=== PATIENT | male | born 1995 | race African-American/Black ===

== ENCOUNTER 2022-07-14 15:50 | Emergency (ER) | payer SELFPAY ==
--- OUTSIDE RECORDS SUMMARY | 2022-07-14 15:56 | XMS REPORT | Continuity of Care Document ---
:1995 Author Organization [facility] Address [address] [place] [address] Care Team Providers Name Role Phone Chadwick Martins Jr Attending Clinician Bull Covarrubias Admitting Clinician Unavailable Payers Payer Name Policy Type Policy Number Effective Date Expiration Date S ource Problems Condition Condition Condition Status Onset Resolution Last Treating Co mments Source Name Details Category Date Date Treatment Clinician Date CHEST PAIN CHEST Diagnosis Active 2015-092016-07-02 Memoria PAIN 0-15 14:47:00 l Active 00:00: [place] 06/16/2016 00 [facility] CONGESTION CONGESTIO Diagnosis Active 2012-05-20 Memoria BODY ACHES N BODY 05-19 08:51:00 l ACHES 00:00: Joey Active 00 05/19/2012 [facility] ABD PAIN ABD PAIN Diagnosis Active 2012-02-28 Memoria Active 02-15 15:05:00 l 02/16/2012 00:00: Adi hodges 00 [facility] ABDOMINAL ABDOMINAL Diagnosis Active 2010-092011-09-18 Memoria PAIN ON PAIN ON 09-16 16:06:00 l RIGHT SIDE RIGHT SIDE 00:00: He kaya Active 00 07/17/2011 [facility] ANKLE PAIN ANKLE Diagnosis Active 2011-05-27 Memoria PAIN - 04:53:00 l Active 00:00: Joey 05/26/2011 00 [facility] Laparoscop [place] Problem Active 2012-05-22 Memoria ic pic 09:11:04 l appendecto appendecto He kaya my my Active Problem 05/22/2012 [facility] Crohn's Crohn's Problem Active 2016-06-20 Vt moria disease disease 00:20:00 l (disorder) (disorder) He rmann Active Problem 06/20/2016 [facility] Asthma Asthma Problem Active 2016-06-20 Emmett khalif (disorder) (disorder) 00:20:00 l Active [place] Problem 06/20/2016 [facility] Laparoscop [place] Problem Active 2016-06-20 Memoria ic pic 00:20:00 l appendecto appendecto He rmann my my (procedure (procedure ) ) Active Problem 06/20/2016 [facility] APPENDICIT APPENDICI Diagnosis Active 2011-09-18 Memoria IS NOS TIS NOS 16:06:00 l Active [facility] Gastroesop Gastroeso Diagnosis Active 2021-08-10 Memoria hageal phageal 05:10:22 l reflux reflux Joey disease, disease, unspecifie unspecifie d whether d whether esophagiti esophagiti s present s present Active Diagnosis 08/10/2021 [facility] Primary [facility], [facility] Body mass Body mass Problem Active 2021-08-10 Memoria index index 05:10:22 l [BMI] [BMI] [place] 40.0-44.9, 40.0-44.9, adult adult Active Problem 08/10/2021 [facility], [facility] Seasonal Seasonal Problem Active 2021-08-10 Memoria allergic allergic 05:10:22 l reaction reaction Adi n Active Problem 08/10/2021 [facility], [facility] Urticarial Urticaria Problem Active 2021-08-10 Memoria rash l rash 05:10:22 l Active Joey Problem 08/10/2021 [facility], [facility] Screening Screening Diagnosis Active 2021-08-10 Memoria for for 05:10:22 l endocrine endocrine Herm andres disorder disorder Active Diagnosis 08/10/2021 [facility], [facility] Screening Diagnosis Active 2021-08-10 Memoria for lipid Screening 05:10:22 l disorders for lipid Herm andres disorders Active Diagnosis 08/10/2021 [facility], [facility] Screening Screening Diagnosis Active 2021-08-10 Memoria for for 05:10:22 l diabetes diabetes Adi n mellitus mellitus Active Diagnosis 08/10/2021 [facility], [facility] Moderate Moderate Problem Active 2021-08-10 Memoria persistent persistent 05:10:22 l asthma, asthma, Joey unspecifie unspecifie d whether d whether complicate complicate d d Active Problem 08/10/2021 [facility] Living [facility] Morbid Morbid Problem Active 2021-08-10 Emmett khalif (severe) (severe) 05:10:22 l obesity obesity Joey due to due to excess excess calories calories Active Problem 08/10/2021 [facility] Primary Primary Problem Active 2021-08-10 Me moria hypertensi hypertensi 05:10:22 l on on Active Adi n Problem 08/10/2021 [facility] Current Current Problem Active 2021-08-10 M emoria 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:10:22 l 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, features, unspecifie unspecifie d whether d whether recurrent recurrent Active Problem 08/10/2021 [facility] History of Past Illness Condition Condition Condition Status Onset Resolution Last Treating Co mments Source Name Details Category Date Date Treatment Clinician Date Discharge Discharge Problem 2015-092016-06-20 2016-06-20 Memoria Diagnosis: Diagnosis: 0-16 00:20:00 00:20:00 l Chest wall Chest wall 05:00: He rmann pain pain 00 06/17/2016 06/20/2016 [facility] Allergies, Adverse Reactions, Alerts Allergy Allergy Status Severity Reaction(s) Onset Inactive Treating Comm ents Source Name Type Date Date Clinician Grass Grass Active rash 2020-09 Memoria Pollen(K Pollen(K 10-05 l -O-R-T-S -O-R-T-S 00:00: Adi n wt Johann) wt Johann) 00 nuts nuts Active rash 2020-09 Memoria 2-03 l 00:00: Joey 00 No Known DA Active U 2017-09 [facility]ie 10-10 [place] [facility] 00:[facility] 00 are [facility] No Known DA Active U 2017-09 [facility] Allergie 10-10 [place] 00:[facility] 00 are [facility] Social History Smoking Status Start Date Stop Date Source Social History [facility] Medications Ordered Filled Start Stop Current Ordering Indication Dosage Frequency Signature Comments Components Source Medication Medication Date Date Medication? Clinician (SIG) Name Name Montelukast 2020-09 Yes TAPASYA 1 tablet Memoria Sodium 2-09 [place] l 05:10: Fluticasone 2020-09 Yes TAPASYA 2 puffs Memoria -Salmeterol 2-09 [place]ALAPU l 05:10: Amlodipine 2020-09 Yes TAPASYA 1 tablet Memoria Besylate 2-09 [place]U l 05:10: DiphenhydrA 2020-09 Yes TAPASYA 1 tablet Memoria MINE HCl 2-09 MANDALAPU at bedtime l 05:10: as needed Pantoprazol 2020-09 Yes TAPASYA 1 tablet Memoria e Sodium 2-03 [place]ALAPU l 00:00: ibuprofen 2015-09 Yes 600 mg = 1 Me moria 600 mg oral 0-16 tab, PO, l tablet 05:13: Q8H, PRN pain, X 5 day, # 15 tab, 0 Refill(s) Cyclobenzap 2015-09 Yes 10 mg = 1 M emoria rine 0-16 tab, PO, l hydrochlori 05:13: TID, X 5 He ann de 10 MG 00 day, # 15 Oral Tablet tab, 0 [Flexeril] Refill(s) Flexeril 2015-09 No Notes: Memoria 0-16 (Same As: l 02:48: Flexeril) ketOROLAC 2015-09 No 4 days Memor ia 30 mg/mL -16 l injectable 02:47: MEDICATION H erm solution WASTE Product Size: 30 mg Product Wasted: ___ mg Saline 2015-09 No Notes: Memoria Flush 0.9% 0-16 (Same as: l 02:08: BD Posiflush) Debrox Yes Isac 5 drp, Memoria Earwax 18 [place] RIGHT EAR, l Removal Kit 05:25: TID, 15 Her cruz 6.5% otic 20 ml, solution Substituti on Allowed, Maintenanc e, SOLN Mucinex DM Yes Isac 1 tab, PO, M emoria Max 9-18 [place] BID, 14 l Strength 05:25: tab, [place] oral 11 Substituti tablet, on extended Allowed, release Maintenanc e, ERTAB Ultracet Yes Davion K 1 tab, PO, M emoria oral tablet 6-17 [place] Q4H, PRN, l 01:54: 12 tab, [place] 27 Pain, Substituti on Allowed, Maintenanc e [place] 5/325 No Davion K 1 tab, Me moria oral tablet 6-17 [place] Route: PO, l 00:17: Drug Form: Joey 00 TAB, ONCE, Start date: 02/16/12 19:17:00, Stop date: 02/16/12 19:17:00 GI cocktail No Davion K 30 mL, Me moria 6-17 [place] Route: PO, l 00:17: Drug Form: [place] 00 SUSP, ONCE, STAT, Start date: 02/16/12 19:17:00, Stop date: 02/16/12 19:17:00 Saline No Davion K 5 ml, Memoria Flush 0.9% 16 [place] Route: l 23:20: IVP, Drug [place] 00 Form: INJ, PRN, PRN Line Flush, Start date: 02/16/12 18:20:00, Duration: 1 doses or times, Stop date: Limited # of times morphine 2010-09 No Chano 2 mg, Memori a Sulfate -16 Feng Route: l 05:07: Suarez-Za IVP, ONCE, H ermann 00 veliz Start date: 07/17/11 23:07:00, Stop date: 07/17/11 23:07:00 Zofran 2010-09 No Esrgio 4 mg, 2 Emmett khalif 1-16 Madhav mL, Route: l 05:01: [place] IVP, Drug Adi n 00 form: INJ, Q6H, PRN Nausea & Vomiting, Start date: 07/17/11 23:01:00, Duration: 30 day, Stop date: 08/16/11 23:00:00 acetaminoph 2010-09 No Sergio 2 tab, Memoria en-hydrocod 1-16 Madhav Route: PO, l one 325 05:00: [place] Drug Form: He rmann mg-5 mg 00 TAB, Q4H, oral tablet PRN Pain, Start date: 07/17/11 23:00:00, Duration: 30 day, Stop date: 08/16/11 22:59:00 ketorolac 2010-09 No Sergio 15 mg, 0.5 Memoria 30 mg/mL -16 Madhav mL, Route: l injectable 05:00: [place] IV, Drug H ermann solution 00 form: INJ, Q6H, PRN Pain, Start date: 07/17/11 23:00:00, Duration: 4 day, Stop date: 07/21/11 22:59:00 morphine 2010-09 No Sergio 2 mg, 1 Me moria Sulfate 1-16 Madhav mL, Route: l 05:00: [place] IV, Drug Joey 00 form: INJ, Q2H, PRN Pain, Start date: 07/17/11 23:00:00, Duration: 30 day, Stop date: 08/16/11 22:59:00 BD Normal 2010-09 No Sergio 30 mL, Me moria Saline 1-16 Madhav Route: IV, l Flush 05:00: [place] Drug Form: Herm andres 00 INJ, PRN, PRN Line Flush, Start date: 07/17/11 23:00:00, Duration: 30 day, Stop date: 08/16/11 22:59:00 BD Normal 2010-09 No Sergio 10 mL, Me moria Saline 1-16 Madhav Route: IV, l Flush 04:59: [place] Drug Form: Herm andres 00 INJ, PRN, PRN Line Flush, Start date: 07/17/11 22:59:00, Duration: 30 day, Stop date: 08/16/11 22:58:00 morphine 2010-09 No Chano 2 mg, Memori a Sulfate 09-17 Feng Route: l 04:52: Suarez-Jacqui IVP, ONCE, H ermann 00 veliz Start date: 07/17/11 22:52:00, Stop date: 07/17/11 22:52:00 acetaminoph 2010-09 No Chano 1,000 mg, Memoria en 10 mg/mL 09-17 Feng Route: IV, l intravenous 04:45: Suarez-Za Drug form: Joey solution 00 veliz INJ, ONCE, PRN Pain, For > or = 50 kg, Start date: 07/17/11 22:45:00 morphine 2010-09 No Chano 2 mg, 1 Emmett khalif Sulfate 1-16 Feng mL, Route: l 04:42: Suarez-Za IVP, Drug He rmann 00 veliz form: INJ, ONCE, Start date: 07/17/11 22:42:00, Stop date: 07/17/11 22:42:00 Mefoxin 2010-09 No Sergio 1 gm, Memor ia 1-16 Madhav Route: l 03:00: [place] IVPB, Joey 00 ONCALL, Start date: 07/17/11 21:00:00, Duration: 12 hr, Stop date: 07/18/11 8:59:00 Zosyn 2010-09 No Luciano G 3.375 gm, Mem oria 1-15 [place] 100 mL, l 23:31: Route: Joey 00 IVPB, Drug form: PDR/INJ, ONCE, Priority: STAT, Start date: 07/17/11 17:31:00, Stop date: 07/17/11 17:31:00 Iohexol 2010-09 No Luciano G 50 ml, Emmett khalif 240mg/ml 1-15 [place] Route: PO, l 19:51: ONCE, [place] 00 STAT, Start date: 07/17/11 13:51:00, Stop date: 07/17/11 13:51:00 ketorolac 2010-09 No Luciano G 30 mg, 1 Memoria 1-15 [place] mL, Route: l 19:17: IVP, Drug [place] 00 form: INJ, ONCE, Priority: STAT, Start date: 07/17/11 13:17:00, Stop date: 07/17/11 13:17:00 Sodium 2010-09 No Luciano G 500 mL, Emmett khalif Chloride 1-15 [place] Rate: l 0.9% 19:17: 1,000 [place] (Bolus) IV 00 ml/hr, 500 mL Infuse over: 0.5 hr, Route: IV, Total Volume: 500, Bolus dose, Priority: STAT, Start date: 07/17/11 13:17:00, Duration: 1 doses or times, Stop date: 07/17/11 13:46:00 Vital Signs Vital Name Observation Time Observation Value Comments Source Weight 2021-08-04 21:45:00 [facility] Height 2021-08-04 21:45:00 [facility] [place] Heart Rate 2021-08-04 21:45:00 [facility] [place] Temperature Oral (F) 2021-08-04 21:45:00 97 F [facility] Joey Diastolic (mm Hg) 2021-08-04 21:45:00 Mem orial Joey Systolic (mm Hg) 2021-08-04 21:45:00 Emmett rial Joey Weight 2021-07-13 21:30:00 [facility] Joey Height 2021-07-13 21:30:00 [facility] [place] Heart Rate 2021-07-13 21:30:00 [facility] [place] Temperature Oral (F) 2021-07-13 21:30:00 97 F [facility] [place] Diastolic (mm Hg) 2021-07-13 21:30:00 Mem orial [place] Systolic (mm Hg) 2021-07-13 21:30:00 Emmett rial [place] Systolic (mm Hg) 2016-06-17 05:55:00 Emmett rial Joey Diastolic (mm Hg) 2016-06-17 05:55:00 Mem orial [place] Respitory Rate 2016-06-17 05:55:00 Memori al [place] Respitory Rate 2016-06-17 04:21:00 Memori al Joey Systolic (mm Hg) 2016-06-17 04:21:00 Emmett rial [place] Diastolic (mm Hg) 2016-06-17 04:21:00 Mem orial Joey Respitory Rate 2016-06-17 02:30:00 Memori al [place] Systolic (mm Hg) 2016-06-17 02:30:00 Emmett rial [place] Diastolic (mm Hg) 2016-06-17 02:30:00 Mem orial Joey Height 2016-06-17 02:07:00 174 cm [facility] [place] BMI Calculated 2016-06-17 02:07:00 Memori al Joey Weight 2016-06-17 02:07:00 [facility] [place] Temperature Oral (F) 2016-06-17 02:07:00 98.5 F [facility] [place] Heart Rate 2016-06-17 02:07:00 [facility] [place] Height 2012-05-20 04:37:00 172.72 cm [facility] Joey Weight 2012-05-20 04:37:00 [facility] Joey Weight 2012-02-16 22:26:00 [facility] [place] Height 2012-02-16 22:26:00 172.72 cm [facility] Joey Respitory Rate 2011-07-18 18:37:00 Memori al [place] Systolic (mm Hg) 2011-07-18 18:37:00 Emmett rial Joey Diastolic (mm Hg) 2011-07-18 18:37:00 Mem orial [place] Temperature Oral (F) 2011-07-18 18:37:00 98.0 F [facility] Joey Heart Rate 2011-07-18 18:37:00 [facility] [place] Systolic (mm Hg) 2011-07-18 14:00:00 Emmett rial [place] Diastolic (mm Hg) 2011-07-18 14:00:00 Mem orial Joey Heart Rate 2011-07-18 14:00:00 [facility] [place] Temperature Oral (F) 2011-07-18 14:00:00 96.9 F [facility] Joey Respitory Rate 2011-07-18 14:00:00 Memori al Joey Respitory Rate 2011-07-18 08:50:00 Memori al [place] Systolic (mm Hg) 2011-07-18 08:50:00 Emmett rial [place] Temperature Oral (F) 2011-07-18 08:50:00 96.9 F [facility] [place] Heart Rate 2011-07-18 08:50:00 [facility] [place] Diastolic (mm Hg) 2011-07-18 08:50:00 Mem orial Joey Weight 2011-07-18 06:28:00 [facility] [place] Height 2011-07-17 17:11:00 167.64 cm [facility] [place] Weight 2011-07-17 17:11:00 [facility] [place] Weight 2011-05-27 08:45:00 [facility] Joey Respitory Rate 2011-05-27 08:45:00 Memori al [place] Heart Rate 2011-05-27 08:45:00 [facility] [place] Diastolic (mm Hg) 2011-05-27 08:45:00 Mem orial [place] Systolic (mm Hg) 2011-05-27 08:45:00 Emmett rial Joey Procedures Procedure Date / Time Performed Performing Clinician Sourc e Appendectomy [facility] [place] Encounters Start End Encounter Admission Attending Care Care Encounter Source Date/Time Date/Time Type Type Clinicians Facility Department ID 2022-07-14 Outpatient [id number] Memoria 15:53:59 [id number] [place] [id number] 2020-05-25 Inpatient [facility] [id number] [facility] 22:04:[address] [facility] 2021-08-04 2021-08-04 Outpatient Healthy Healthy [id number] eClinic 15:45:00 15:45:00 Living [facility], [facility] 2021-07-13 2021-07-13 Outpatient Healthy Healthy [id number] eClinic 15:30:00 15:30:00 Living Living [facility], [facility], [facility] 2017-04-19 2017-04-[address] [facility] [id number] [place] 00:00:00 00:00:00 [facility] 2017-03-19 2017-03-[address] [facility] [id number] [place] 00:00:00 00:00:00 [facility] 2017-03-13 2017-03-[address] [facility] [id number] [place] 00:00:00 00:00:00 [facility] 2017-02-07 2017-02-[address] [facility] [id number] [place] 00:00:00 00:00:00 [facility] 2016-06-17 2016-06-17 Emergency [facility]Fl[facility] [id number] Memoria 02:00:00 05:59:00 giselle Cook 06 [facility] 2016-06-16 2016-06-17 Outpatient [facility] [id number] 21:00:00 00:59:00 [place] 2012-05-19 2012-05-20 Emergency nullFlavo Not Sent [id number] Memoria 23:36:00 00:30:00 giselle Cook 2012-02-16 2012-02-16 Emergency nullFlavo Not Sent [id number] Memoria 17:24:00 21:22:00 giselle Cook 2011-07-17 2011-07-18 OU nullFlavo Not Sent [id number] Memoria 10:55:00 14:58:00 gislele Cook 2011-05-27 2011-05-27 Emergency nullFlavo Not Sent [id number] [facility] 03:43:00 05:30:00 giselle Cook Results Test Description Test Time Test Comments Results Result Comments Source URINALYSIS COMPLETE 2020-05-25 23:56:00 Test Item Value Reference Range Interpretation Comme nts UA COLOR (test code = COLU) YELLOW YELLOW UA APPEARANCE (test code = Clear CLEAR APPU) UA GLUCOSE DIPSTICK (test NEGATIVE NEGATIVE code = DGLUU) UA BILIRUBIN DIPSTICK (test NEGATIVE NEGATIVE code = BILU) UA KETONE DIPSTICK (test code NEGATIVE NEGATIVE = KETU) UA SPECIFIC GRAVITY (test 1.027 1.001-1.030 code = SGU) UA BLOOD DIPSTICK (test code NEGATIVE NEGATIVE = ALEXIS) UA PH DIPSTICK (test code = 5.0 5.0-9.0 NARENDRA) UA PROTEIN DIPSTICK (test NEGATIVE NEGATIVE code = PROU) UA UROBILINOGEN DIPSTICK NEGATIVE <=1.0 (test code = URO) UA NITRITE DIPSTICK (test NEGATIVE NEGATIVE code = MELVIN) UA ASCORBIC ACID DIPSTICK POSITIVE A Hi gh levels of ascorbic acid may (test code = AAU) cause fals e negativeresults for blood, glucose & nitrite. UA LEUKOCYTE ESTERASE NEGATIVE NEGATIVE DIPSTICK (test code = LEUU) UA WBC (test code = WBCU) 0-5 /HPF 0-5 UA RBC (test code = RBCU) 0-5 /HPF 0-5 UA EPITHELIAL CELLS (test RARE /LPF NONE-FEW code = EPIU) UA BACTERIA (test code = None /HPF NONE SEEN BACU) UA MUCUS (test code = MUCU) 2+ /LPF NONE SEEN - CT ABD PELVIS [id number] 23:55:00Patient Name: KATIE KAHN Unit No: [id number] EXAMS: CPT: [id number] CT ABD PELVIS W/CONT 22014 CT ABDOMEN AND PELVIS WITH IV CONTRAST: CLINICAL HISTORY: Abdominal pain COMPARISON: None. TECHNIQUE:Axial CT imaging of the abdomen and pelvis was performed with IV contrast. Coronal and sagittal reformatted images are submitted. FINDINGS: The liver appears normal. The spleen appears normal. The pancreas has a normal appearance without mass or inflammation. The kidneys appear normal. No adrenal abnormalities are seen. Bowel loops are normal in caliber. There is no free fluid in the abdomen or pelvis. No free air is seen. There is no abdominal or retroperitoneal mass. No inflammatory process is seen in the abdomen or pelvis. The appendix is surgically absent The abdominal aorta is normal in caliber. Osseous structures appear normal. The lung bases are clear. No pleural or pericardial effusion seen. IMPRESSION: Negative CT of the abdomen and pelvis. DLP: 1786.25 mGy-cm IV Contrast: [address] dose optimization is achieved for this examination by the use of a CT protocol in accordance with ACR practice standards and adherence to mortgage protection sales's recommendations with automated exposurecontrol. at 8370 Reported and signed by: Inderjit Estrella MD CC: Suzy Farfan MD Technologist: ADI Enamorado CTDI: 31.66 DLP: 1786.25Trscr Dt/Tm: 05/25/2020 (1442) by:[email or web address] Orig Print D/T: S: 05/25/2020 (3165) BATCH NO: N/A Name: CRISSKATIE Angelic [facility] Phys: SYDNEE - Emerald,Ric DO [address] Kiana : 1995 Age: 24Sex: [place] [address] Loc: N.ERS Exam Date: 05/25/2020 Status: REG ER PH: FAX: PAGE 1 Signed ReportCBC W/AUTO [id number] 22:56:00 Test Item Value Reference Range Interpretation Comments WHITE BLOOD CELL (test code = 13.2 x10 3/uL 3.2-11.5 H WBC) RED BLOOD CELL (test code = 5.89 x10(6)/m 4.20-5.70 H RBC) HEMOGLOBIN (test code = HGB) 16.1 g/dL 12.9-17.3 N HEMATOCRIT (test code = HCT) 48.1 % 38.7-51.0 N MEAN CELL VOLUME (test code = 82 fL 80-100 N MCV) MEAN CELL HGB (test code = MCH) 27.3 pg 26.7-33.3 N MEAN CELL HGB CONCENTRATION 33.5 g/dL 30.0-34.0 N (test code = MCHC) RED CELL DISTRIBUTION WIDTH 13.2 % 11.3-14.5 N (test code = RDW) PLATELET COUNT (test code = 273 x10 3/uL 130-408 N PLT) MEAN PLATELET VOLUME (test code 10.8 fL 8.6-12.6 N = MPV) PLATELET ESTIMATE (test code = ADEQUATE ADEQUATE PLTEST) WBC [id number] 22:56:00 Test Item Value Reference Range Interpretation Comments TOTAL CELLS COUNTED (test 100 #CELLS code = TCC) SEGMENTED NEUTROPHILS 67 % 43-65 H (test code = SEG) LYMPHOCYTE (test code = 26 % 20.5-45.5 N LYMPH) MONOCYTE (test code = 4 % 5.5-11.7 L MON) EOSINOPHIL (test code = 1 % 0.9-2.9 N EOS) METAMYELOCYTE (test code 1 % 0-0 H = META) MYELOCYTE (test code = 1 % 0-0 H MYELO) BAND ABSOLUTE (test code 0.00 10 3/uL 0.00-0.70 N = BAND#) NEUTROPHIL ABSOLUTE (test 8.84 10 3/uL 1.6-7.2 H code = SEG#) LYMPH ABSOLUTE (test code 3.4 10 3/uL 1.1-2.7 H = LYMPH#) ATYPICAL LYMPH ABSOLUTE 0.00 10 3/uL 0.00-0.00 N (test code = ALYMPH#) MONOCYTE ABSOLUTE (test 0.52 10 3/uL 0.3-0.8 N code = MON#) BASOPHIL ABSOLUTE (test 0.00 10 3/uL 0.00-0.1 N code = BASO#) EOSINOPHIL ABSOLUTE (test 0.13 10 3/uL 0.00-0.50 N code = EOS#) METAMYELOCYTE ABSOLUTE 0.13 10 3/uL 0.00-0.00 H (test code = META#) MYELOCYTE ABSOLUTE (test 0.13 10 3/uL 0.00-0.00 H code = MYELO#) PROMYELOCYTE ABSOLUTE 0.00 10 3/uL 0.00-0.00 N (test code = PROM#) BLASTS ABSOLUTE (test 0.00 10 3/uL 0.00-0.00 N code = BLAST#) OTHER CELLS ABSOLUTE 0.00 10 3/uL 0.00-0.00 N (test code = OCT#) RBC MORPHOLOGY COMMENT Normal NORMAL (test code = MOC) PLATELET MORPHOLOGY (test LARGE PLATELETS SEEN NORMAL code = PLTMORPH) PLATELET MORPHOLOGY (test GIANT PLATELETS SEEN NORMAL code = [id number]) BASIC METABOLIC [id number] 22:51:00 Test Item Value Reference Range Interpretation Comments SODIUM (test code 136 mmol/L 135-145 N = NA) POTASSIUM (test 4.0 mmol/L 3.6-5.0 N code = K) CHLORIDE (test 103 mmol/L 101-111 N code = CL) CARBON DIOXIDE 24 mmol/L 21-31 N (test code = CO2) GLUCOSE (test code 118 mg/dl 70-100 H = GLU) BLOOD UREA 11 mg/dl 6-20 N NITROGEN (test code = BUN) GLOMERULAR >=60 max >60 The estimated FILTRATION RATE estimate glomerular (test code = GFR) filtration rate is computed usingpatient ra ce, age (>18), sex, and serum creatinin e. If anyof the neede d data elements a re missing the Laboratory kathy ot compute an estimation of t he glomerular filtration rate . CREATININE (test 0.86 mg/dL 0.64-1.27 N code = CREAT) CALCIUM (test code 9.6 mg/dL 8.5-10.5 N = CA) LIVER FUNCTION [id number] 22:51:00 Test Item Value Reference Range Interpretation Comments TOTAL PROTEIN (test code = PROT) 7.7 g/dL 6.7-8.2 N ALBUMIN (test code = ALB) 4.3 g/dL 3.2-5.5 N BILIRUBIN TOTAL (test code = BILT) 0.90 mg/dL 0.2-1.3 N BILIRUBIN DIRECT (test code = 0.2 mg/dL 0.00-0.20 N BILD) SGOT/AST (test code = AST) 34 U/L 10-42 N SGPT/ALT (test code = ALT) 50 U/L 10-60 N ALKALINE PHOSPHATASE (test code = 64 U/L 42-121 N ALKP) [id number] 22:51:00 Test Item Value Reference Range Interpretation Comments LIPASE (test code = LIP) 20 IU/L 22-51 L BASIC METABOLIC [id number] 22:46:00 Test Item Value Reference Range Interpretation Comments SODIUM (test code 136 mmol/L 135-145 N = NA) POTASSIUM (test 4.0 mmol/L 3.6-5.0 N code = K) CHLORIDE (test 103 mmol/L 101-111 N code = CL) CARBON DIOXIDE 24 mmol/L 21-31 N (test code = CO2) GLUCOSE (test code 118 mg/dl 70-100 H = GLU) BLOOD UREA 11 mg/dl 6-20 N NITROGEN (test code = BUN) GLOMERULAR >=60 max >60 The estimated FILTRATION RATE estimate glomerular (test code = GFR) filtration rate is computed usingpatient ra ce, age (>18), sex, and serum creatinin e. If anyof the neede d data elements a re missing the Laboratory kathy ot compute an estimation of t he glomerular filtration rate . CREATININE (test 0.86 mg/dL 0.64-1.27 N code = CREAT) CALCIUM (test code 9.6 mg/dL 8.5-10.5 N = CA) LIVER FUNCTION [id number] 22:46:00 Test Item Value Reference Range Interpretation Comments TOTAL PROTEIN (test code = PROT) 7.7 g/dL 6.7-8.2 N ALBUMIN (test code = ALB) 4.3 g/dL 3.2-5.5 N BILIRUBIN TOTAL (test code = BILT) mg/dL 0.2-1.3 BILIRUBIN DIRECT (test code = BILD) mg/dL 0.00-0.20 SGOT/AST (test code = AST) U/L 10-42 SGPT/ALT (test code = ALT) U/L 10-60 ALKALINE PHOSPHATASE (test code = U/L 42-121 ALKP) [id number] 22:46:00 Test Item Value Reference Range Interpretation Comments LIPASE (test code = LIP) 20 IU/L 22-51 L - XR CHEST 1 [id number] 22:44:00Patient Name: KATIE KAHN Unit No: [id number] EXAMS: CPT: [id number] XR CHEST 1 V [id number] CHEST 1 VIEW CLINICAL HISTORY: Cough COMPARISON: 08/09/2018. A single frontal view of the chest is submitted. FINDINGS: The cardiac silhouette is normal in size. Vascularity appears normal. The lungs are clear. No pleural effusion or pneumothorax is seen. No osseous abnormalities are seen. IMPRESSION: Negative chest radiograph. at 2244 Reported and signed by: Inderjit Estrella MD CC: Bull Covarrubias MD Technologist: Dionne Fuentes Fluoro Time: DAP (Gy m2): Air Kerma (mGy): Trscr Dt/Tm: 05/25/2020 (2243) by:[email or web address] Orig Print D/T: S: 05/25/2020 (2246) BATCH NO: N/A Name: KATIE KAHN [facility] ED Phys: NARAS - Emerald,Ric DO [address] eagle : 1995 Age: 24 Sex: M [place] [address] Loc: N.ERS Exam Date: 05/25/2020 Status: PRE ER PH: FAX: PAGE 1 Signed Report- XR ABDOMEN [id number] 22:42:00Patient Name: KATIE KAHN Unit No: [id number] EXAMS: CPT: [id number] XR ABDOMEN [id number] XR ABDOMEN, 1 VIEW HISTORY: PAIN. COMPARISON: None. FINDINGS: The abdominal gas pattern is nonobstructed. No significant calcifications are encountered. Moderate amount of stool present. No free intraperitoneal air is seen. Lung bases are clear. IMPRESSION: 1. No acute radiographic abnormality seen. at 2242 Reported and signed by: Shelby Nowak MD CC: Bull Covarrubias MD Technologist: Dionne Fuentes Fluoro Time: DAP (Gy m2): Air Kerma (mGy): Trscr Dt/Tm: 05/25/2020 (2241) by:[email or web address] Orig Print D/T: S: 05/25/2020 (2244) BATCH NO: N/A Name: KATIE KAHN [facility] Phys: NARAS - Emerald,Ric DO [address] : 1995 Age: 24Sex: [place] [address] Loc: N.ERS Exam Date: 05/25/2020 Status: PRE ER PH: FAX: PAGE 1 Signed ReportCBC W/AUTO [id number] 22:41:00 Test Item Value Reference Range Interpretation Comments WHITE BLOOD CELL (test code = 13.2 x10 3/uL 3.2-11.5 H WBC) RED BLOOD CELL (test code = 5.89 x10(6)/m 4.20-5.70 H RBC) HEMOGLOBIN (test code = HGB) 16.1 g/dL 12.9-17.3 N HEMATOCRIT (test code = HCT) 48.1 % 38.7-51.0 N MEAN CELL VOLUME (test code = 82 fL 80-100 N MCV) MEAN CELL HGB (test code = MCH) 27.3 pg 26.7-33.3 N MEAN CELL HGB CONCENTRATION 33.5 g/dL 30.0-34.0 N (test code = MCHC) RED CELL DISTRIBUTION WIDTH 13.2 % 11.3-14.5 N (test code = RDW) PLATELET COUNT (test code = 273 x10 3/uL 130-408 N PLT) MEAN PLATELET VOLUME (test code 10.8 fL 8.6-12.6 N = MPV) WBC [id number] 22:41:00 Test Item Value Reference Range Interpretation Comments TOTAL CELLS COUNTED (test code = TCC) #CELLS RBC MORPHOLOGY COMMENT (test code = NORMAL MOC) PLATELET MORPHOLOGY (test code = NORMAL PLTMORPH) CBC W/AUTO [id number] 22:38:00 Test Item Value Reference Range Interpretation Comments WHITE BLOOD CELL (test code = 13.2 x10 3/uL 3.2-11.5 H WBC) RED BLOOD CELL (test code = 5.89 x10(6)/m 4.20-5.70 H RBC) HEMOGLOBIN (test code = HGB) 16.1 g/dL 12.9-17.3 N HEMATOCRIT (test code = HCT) 48.1 % 38.7-51.0 N MEAN CELL VOLUME (test code = 82 fL 80-100 N MCV) MEAN CELL HGB (test code = MCH) 27.3 pg 26.7-33.3 N MEAN CELL HGB CONCENTRATION 33.5 g/dL 30.0-34.0 N (test code = MCHC) RED CELL DISTRIBUTION WIDTH 13.2 % 11.3-14.5 N (test code = RDW) PLATELET COUNT (test code = 273 x10 3/uL 130-408 N PLT) MEAN PLATELET VOLUME (test code 10.8 fL 8.6-12.6 N = MPV) WBC [id number] 22:38:00 Test Item Value Reference Range Interpretation Comments TOTAL CELLS COUNTED (test code = TCC) #CELLS RBC MORPHOLOGY COMMENT (test code = NORMAL MOC) PLATELET MORPHOLOGY (test code = NORMAL PLTMORPH) CBC W/AUTO [id number] 22:27:00 Test Item Value Reference Range Interpretation Comments WHITE BLOOD CELL (test code = 13.2 x10 3/uL 3.2-11.5 H WBC) RED BLOOD CELL (test code = 5.89 x10(6)/m 4.20-5.70 H RBC) HEMOGLOBIN (test code = HGB) 16.1 g/dL 12.9-17.3 N HEMATOCRIT (test code = HCT) 48.1 % 38.7-51.0 N MEAN CELL VOLUME (test code = 82 fL 80-100 N MCV) MEAN CELL HGB (test code = MCH) 27.3 pg 26.7-33.3 N MEAN CELL HGB CONCENTRATION 33.5 g/dL 30.0-34.0 N (test code = MCHC) RED CELL DISTRIBUTION WIDTH % 11.3-14.5 (test code = RDW) PLATELET COUNT (test code = x10 3/uL 130-408 PLT) MEAN PLATELET VOLUME (test code 10.8 fL 8.6-12.6 N = MPV) NEUTROPHIL % (test code = NT%) % 40.0-70.0 LYMPHOCYTE % (test code = LY%) % 20-40 MONOCYTE % (test code = MO%) % 1-10 EOSINOPHIL % (test code = EO%) % 0.0-5.0 BASOPHIL % (test code = BA%) % 0.0-1.0 NUCLEATED RBC % (test code = % 0.0-0.9 NRBC%) NEUTROPHIL # (test code = NT#) x10 3/uL 1.6-7.2 LYMPHOCYTE # (test code = LY#) x10 3/uL 1.1-2.7 MONOCYTE # (test code = MO#) x10 3/uL 0.3-0.8 EOSINOPHIL # (test code = EO#) x10 3/uL 0.0-0.5 DRUG [id number] 03:49:00 Test Item Value Reference Range Interpretation Comments U Norma Scr (test code Negative *NA*(06/16/16 = U Norma Scr) 10:49 PM) [facility] [id number] 03:49:00 Test Item Value Reference Range Interpretation Comments U Benzodia Scr (test Negative *NA*(06/16/16 code = U Benzodia Scr) 10:49 PM) [facility] [id number] 03:49:00 Test Item Value Reference Range Interpretation Comments U Phencyc Scr (test Negative *NA*(06/16/16 code = U Phencyc Scr) 10:49 PM) [facility] [id number] 03:49:00 Test Item Value Reference Range Interpretation Comments U Opiate Scr (test Negative *NA*(06/16/16 code = U Opiate Scr) 10:49 PM) [facility] [id number] 03:49:00 Test Item Value Reference Range Interpretation Comments U Cocaine Scr (test Negative *NA*(06/16/16 code = U Cocaine Scr) 10:49 PM) [facility] [id number] 03:49:00 Test Item Value Reference Range Interpretation Comments U Cannab Scr (test Negative *NA*(06/16/16 code = U Cannab Scr) 10:49 PM) [facility] [id number] 03:49:00 Test Item Value Reference Range Interpretation Comments U Amph Scr (test code Negative *NA*(06/16/16 = U Amph Scr) 10:49 PM) [facility] [id number] 03:49:00 Test Item Value Reference Range Interpretation Comments UDS Note (test code = See Note *NA*(06/16/16 UDS Note) 10:49 PM) [facility] [id number] 03:49:00 Test Item Value Reference Range Interpretation Comments UA Urobilinogen (test code = UA 0.2 0.1-1.0 Urobilinogen) [facility] [id number] 03:49:00 Test Item Value Reference Range Interpretation Comments UA Bili (test code = Negative *NA*(06/16/16 UA Bili) 10:49 PM) [facility] AND [id number] 03:49:00 Test Item Value Reference Range Interpretation Comments UA Ketones (test code = UA Negative mg/dL Ketones) [facility] AND [id number] 03:49:00 Test Item Value Reference Range Interpretation Comments UA Blood (test code = Negative (06/16/16 10:49 UA Blood) PM) [facility] AND [id number] 03:49:00 Test Item Value Reference Range Interpretation Comments UA Glucose (test code = UA Negative mg/dL Glucose) [facility] AND [id number] 03:49:00 Test Item Value Reference Range Interpretation Comments UA Turbidity (test code = Clear (06/16/16 UA Turbidity) 10:49 PM) [facility] AND [id number] 03:49:00 Test Item Value Reference Range Interpretation Comments UA pH (test code = UA pH) 6.0 1 5.0-8.0 [facility] AND [id number] 03:49:00 Test Item Value Reference Range Interpretation Comments UA Spec Grav (test code = UA Spec 1.025 1 Grav) [facility] AND [id number] 03:49:00 Test Item Value Reference Range Interpretation Comments UA Protein (test code = UA Negative mg/dL Protein) [facility] AND [id number] 03:49:00 Test Item Value Reference Range Interpretation Comments UA Color (test code = Yellow *NA*(06/16/16 UA Color) 10:49 PM) [facility] AND [id number] 03:49:00 Test Item Value Reference Range Interpretation Comments UA Leuk Est (test Negative (06/16/16 10:49 code = UA Leuk Est) PM) [facility] AND [id number] 03:49:00 Test Item Value Reference Range Interpretation Comments UA Nitrite (test code Negative (06/16/16 = UA Nitrite) 10:49 PM) [facility] AND [id number] 03:49:00 Test Item Value Reference Range Interpretation Comments UA Sq Epi (test code = None Seen (06/16/16 UA Sq Epi) 10:49 PM) [facility] AND [id number] 03:49:00 Test Item Value Reference Range Interpretation Comments UA WBC (test code = UA None Seen (06/16/16 WBC) 10:49 PM) [facility] [id number] 03:49:00 Test Item Value Reference Range Interpretation Comments UA Bacteria (test code = None Seen (06/16/16 UA Bacteria) 10:49 PM) [facility] [id number] 03:49:00 Test Item Value Reference Range Interpretation Comments UA RBC (test None Seen See_Comment [Automated mes vaishali] code = UA RBC) (06/16/16 10:49 The system which PM) generated this result transmitted ref erence range: <=2. The reference range was not used to int erpret this result as normal/abnormal . [employer] [id number] 02:52:07 Test Item Value Reference Range Interpretation Comments Total CK (test code = Total CK) 209 12-191 [facility] [employer] [id number] 02:52:07 Test Item Value Reference Range Interpretation Comments Troponin-I (test code no gt See_Comment [Auto mated message] The = Troponin-I) system which g enerated this result transmit javi reference range : <=0.40. The reference r giulia was not used to interpr et this result as cyndi l/abnormal. [employer] [id number] 02:52:07 Test Item Value Reference Range Interpretation Comments CK MB (test code = CK MB) 1.2 0.5-3.6 [facility] goodideazs2016-10-16 02:52:07 Test Item Value Reference Range Interpretation Comments CK MB Index (test 0.6 See_Comment [Automate d message] The code = CK MB Index) system w [facility] generated this result transmit javi reference range : <=2.5. The reference range was not used to interpr et this result as cyndi l/abnormal. [employer] [id number] 02:52:07 Test Item Value Reference Range Interpretation Comments eGFR (test code = eGFR) 149 [facility] [employer] [id number] 02:52:07 Test Item Value Reference Range Interpretation Comments Glucose Lvl (test code = Glucose Lvl) 93 70-99 [facility] [employer] [id number] 02:52:07 Test Item Value Reference Range Interpretation Comments BUN (test code = BUN) 11 7-22 [facility]2016-10-16 02:52:07 Test Item Value Reference Range Interpretation Comments Potassium Lvl (test code = Potassium 4.0 3.5-5.1 Lvl) [facility]2016-10-16 02:52:07 Test Item Value Reference Range Interpretation Comments Creatinine Lvl (test code = Creatinine 0.77 0.50-1.40 Lvl) [facility]2016-10-16 02:52:07 Test Item Value Reference Range Interpretation Comments Calcium Lvl (test code = Calcium Lvl) 9.0 8.5-10.5 [facility]2016-10-16 02:52:07 Test Item Value Reference Range Interpretation Comments Total Protein (test code = Total 7.9 6.4-8.4 Protein) [facility]2016-10-16 02:52:07 Test Item Value Reference Range Interpretation Comments Sodium Lvl (test code = Sodium Lvl) 141 135-145 [facility]2016-10-16 02:52:07 Test Item Value Reference Range Interpretation Comments ALT (test code = ALT) 37 See_Comment [Auto mated message] The system which ge nerated this result transmit javi reference range : <=65. The reference range was not used to interpr et this result as cyndi l/abnormal. [facility]2016-10-16 02:52:07 Test Item Value Reference Range Interpretation Comments AGAP (test code = AGAP) 14.0 10.0-20.0 [facility]2016-10-16 02:52:07 Test Item Value Reference Range Interpretation Comments Chloride Lvl (test code = Chloride Lvl) 106 95-109 [facility]2016-10-16 02:52:07 Test Item Value Reference Range Interpretation Comments CO2 (test code = CO2) 25 24-32 [facility]2016-10-16 02:52:07 Test Item Value Reference Range Interpretation Comments Albumin Lvl (test code = Albumin Lvl) 4.1 3.5-5.0 [facility]2016-10-16 02:52:07 Test Item Value Reference Range Interpretation Comments B/C Ratio (test code = B/C Ratio) 14 6-25 [facility]2016-10-16 02:52:07 Test Item Value Reference Range Interpretation Comments AST (test code = AST) 21 See_Comment [Auto mated message] The system which ge nerated this result transmit javi reference range : <=37. The reference range was not used to interpr et this result as cyndi l/abnormal. [facility]2016-10-16 02:52:07 Test Item Value Reference Range Interpretation Comments Alk Phos (test code = Alk Phos) 72 39-136 [facility]2016-10-16 02:52:07 Test Item Value Reference Range Interpretation Comments Bili Total (test code = Bili Total) 0.7 0.2-1.3 [facility]2016-10-16 02:52:07 Test Item Value Reference Range Interpretation Comments Globulin (test code = Globulin) 3.8 2.7-4.2 [facility]2016-10-16 02:52:07 Test Item Value Reference Range Interpretation Comments A/G Ratio (test code = A/G Ratio) 1.1 0.7-1.6 [id number] 02:43:00 Test Item Value Reference Range Interpretation Comments Monocytes (test code = Monocytes) 9.8 2.0-12.0 [place] [id number] 02:43:00 Test Item Value Reference Range Interpretation Comments Segs-Bands # (test code = Segs-Bands #) 4.9 1.5-8.1 [place] [id number] 02:43:00 Test Item Value Reference Range Interpretation Comments Eosinophils (test code = 5.4 See_Comment [A utomated message] The Eosinophils) system which ge nerated this result tra nsmitted reference range : <=4.0. The reference r giulia was not used to int erpret this result as normal/abnormal . [facility] No[id number] 02:43:00 Test Item Value Reference Range Interpretation Comments Basophils (test code = 1.7 See_Comment [Aut omated message] The Basophils) system which ge nerated this result tra nsmitted reference range : <=1.0. The reference r giulia was not used to int erpret this result as normal/abnormal . [facility] NortheastTkquqvkLSMJIUVXGF4216-22-90 02:43:00 Test Item Value Reference Range Interpretation Comments Lymphocytes (test code = Lymphocytes) 32.0 20.0-40.0 [facility] No[id number] 02:43:00 Test Item Value Reference Range Interpretation Comments Eosinophils # (test code 0.5 See_Comment [A utomated message] The = Eosinophils #) system whic h generated this result tra nsmitted reference range : <=0.5. The reference r giulia was not used to int erpret this result as normal/abnormal . [facility] Northea[id number] 02:43:00 Test Item Value Reference Range Interpretation Comments Lymphocytes # (test code = Lymphocytes 3.0 1.0-5.5 #) [facility] NortheastBylkxiwDVRNJFXFBX9376-06-02 02:43:00 Test Item Value Reference Range Interpretation Comments Basophils # (test code 0.2 See_Comment [Aut omated message] The = Basophils #) system which generated this result tra nsmitted reference range : <=0.2. The reference r giulia was not used to int erpret this result as normal/abnormal . [facility] NortheastKovsxtlGFPMKROAXT5565-97-37 02:43:00 Test Item Value Reference Range Interpretation Comments Large Plt (test code Moderate *ABN*(06/16/16 = Large Plt) 9:43 PM) [facility] NortheastZqsmzewEOKTHOLCUG8831-51-02 02:43:00 Test Item Value Reference Range Interpretation Comments Monocytes # (test code 0.9 See_Comment [Aut omated message] The = Monocytes #) system which generated this result tra nsmitted reference range : <=0.8. The reference r giulia was not used to int erpret this result as normal/abnormal . [facility] NortheastOuyippoQXHEAYYCTO8092-40-26 02:43:00 Test Item Value Reference Range Interpretation Comments MCHC (test code = MCHC) 34.1 32.0-36.0 [facility] NortheastRuynjlbGJZXFTFUYY7244-97-49 02:43:00 Test Item Value Reference Range Interpretation Comments MCH (test code = MCH) 27.8 pg 27.0-31.0 [facility] NortheastFudwiseWTKTMJQKHP8913-62-18 02:43:00 Test Item Value Reference Range Interpretation Comments RDW (test code = RDW) 13.5 11.5-14.5 [facility] NortheastJgtrismSFNGVCGOKD2656-99-22 02:43:00 Test Item Value Reference Range Interpretation Comments Platelet (test code = Platelet) 215 133-450 [facility] NortheastGawuamqHGHQXMOVIV1400-69-28 02:43:00 Test Item Value Reference Range Interpretation Comments WBC (test code = WBC) 9.5 3.7-10.4 [facility] NortheastJkzobicHBVLQYSQRG6011-07-04 02:43:00 Test Item Value Reference Range Interpretation Comments MPV (test code = MPV) 9.1 7.4-10.4 [facility] NortheastNuopphxTKUHYWQAHM2512-26-11 02:43:00 Test Item Value Reference Range Interpretation Comments Hct (test code = Hct) 44.5 42.0-54.0 [facility] NortheastHrsrzkmWZUMYITURY7662-99-01 02:43:00 Test Item Value Reference Range Interpretation Comments MCV (test code = MCV) 81.5 80.0-94.0 [facility] NortheastHsbkpvrOZTAODTZBR2609-47-44 02:43:00 Test Item Value Reference Range Interpretation Comments RBC (test code = RBC) 5.46 4.70-6.10 [facility] NortheastBwgnqbkUMCUSIYJPJ6044-89-97 02:43:00 Test Item Value Reference Range Interpretation Comments Hgb (test code = Hgb) 15.2 14.0-18.0 [facility] NortheastVfqjnjrNZSUJSPHQM8758-07-45 02:43:00 Test Item Value Reference Range Interpretation Comments RBC Morph (test code = Normal (06/16/16 9:43 RBC Morph) PM) [facility] NortheastQtninejTULERUBYPQ9927-84-81 02:43:00 Test Item Value Reference Range Interpretation Comments Segs (test code = Segs) 51.1 45.0-75.0 [facility]RyajclaLFAYUJCCS5801-04-86 23:35:00 Test Item Value Reference Range Interpretation Comments Lipase Lvl (test code = Lipase Lvl) 114 73-393 N [facility] PasoKhmetidCAIKXPQQE9046-39-46 23:35:00 Test Item Value Reference Range Interpretation Comments Amylase Lvl (test code = Amylase Lvl) 46 25-115 N [facility] PasoDlmmamjHXDXAWZGM4935-97-22 23:35:00 Test Item Value Reference Range Interpretation Comments Total Protein (test code = Total 8.7 6.4-8.4 H Protein) [facility] PasoEbcdldxBNCWHZRDY4391-47-47 23:35:00 Test Item Value Reference Range Interpretation Comments Bili Total (test code = Bili Total) 0.7 0.2-1.3 N [facility] PasoHlxhakhOLGJHRYFD3936-69-84 23:35:00 Test Item Value Reference Range Interpretation Comments AST (test code = AST) 22 See_Comment N [Auto mated message] The system which ge nerated this result transmit javi reference range : <=37. The reference range was not used to interpr et this result as cyndi l/abnormal. [facility] PasoYsfqpdhBSMKDUGRH0394-51-34 23:35:00 Test Item Value Reference Range Interpretation Comments Albumin Lvl (test code = Albumin Lvl) 4.5 3.5-5.0 N [facility] PasoZkhmnluJGHHOVABU8662-67-95 23:35:00 Test Item Value Reference Range Interpretation Comments ALT (test code = ALT) 50 See_Comment N [Auto mated message] The system which ge nerated this result transmit javi reference range : <=65. The reference range was not used to interpr et this result as cyndi l/abnormal. [facility] PasoXrwgzmlZQLHYFELS7386-62-13 23:35:00 Test Item Value Reference Range Interpretation Comments Alk Phos (test code = Alk Phos) 107 39-136 N [facility] PasoPquvnzlBFZXAGFJO4215-45-53 23:35:00 Test Item Value Reference Range Interpretation Comments Chloride Lvl (test code = Chloride Lvl) 104 95-109 N [facility] PasoDqgkalrADJPHSZGX5688-84-85 23:35:00 Test Item Value Reference Range Interpretation Comments Potassium Lvl (test code = Potassium 4.3 3.5-5.1 N Lvl) [facility] PasoKxfvrtrKHJRINZPY4651-67-75 23:35:00 Test Item Value Reference Range Interpretation Comments Calcium Lvl (test code = Calcium Lvl) 9.7 8.5-10.5 N [facility] PasoHaylmjdXBMEKGVYX8892-85-10 23:35:00 Test Item Value Reference Range Interpretation Comments CO2 (test code = CO2) 28 24-32 N [facility] PasoRugghygCGMELNFNP3865-96-81 23:35:00 Test Item Value Reference Range Interpretation Comments Glucose Lvl (test code = Glucose Lvl) 92 70-99 N [facility] PasoWwijuclTBIJPKSXZ7749-34-38 23:35:00 Test Item Value Reference Range Interpretation Comments BUN (test code = BUN) 12 7-22 N [facility] PasoYfrlqsoSCIAGHHGU2527-55-07 23:35:00 Test Item Value Reference Range Interpretation Comments Creatinine Lvl (test code = Creatinine 0.9 0.5-1.4 N Lvl) [facility] PasoFqkcrhhEVRAKIHDZ1160-97-82 23:35:00 Test Item Value Reference Range Interpretation Comments Sodium Lvl (test code = Sodium Lvl) 140 135-145 N [facility] PasoYvtlidoAHCRLIWMM6817-83-21 23:35:00 Test Item Value Reference Range Interpretation Comments Globulin (test code = Globulin) 4.2 2.0-4.0 H [facility] PasoMspxeoaAYMOUWCBC2107-88-88 23:35:00 Test Item Value Reference Range Interpretation Comments A/G Ratio (test code = A/G Ratio) 1.1 0.7-1.6 N [facility] PasoIlrwdloXVNDZGOLO1176-84-83 23:35:00 Test Item Value Reference Range Interpretation Comments B/C Ratio (test code = B/C Ratio) 13 6-25 N [facility] PasoUsajlvjVBHKKWMHV2589-24-21 23:35:00 Test Item Value Reference Range Interpretation Comments AGAP (test code = AGAP) 12.3 10.0-20.0 N [facility] NortheastDonqoolYOLYHDXGOX3432-82-91 23:35:00 Test Item Value Reference Range Interpretation Comments Segs-Bands # (test code = Segs-Bands #) 4.7 1.5-8.1 N [facility] NortheastLrmmaksMHNLRRXXBA2937-39-39 23:35:00 Test Item Value Reference Range Interpretation Comments Basophils # (test code 0.1 See_Comment N [Aut omated message] The = Basophils #) system which generated this result tra nsmitted reference range : <=0.2. The reference r giulia was not used to int erpret this result as normal/abnormal . [facility] NortheastUkadjehRFTIBUIDPB2573-56-48 23:35:00 Test Item Value Reference Range Interpretation Comments Monocytes # (test code 0.8 See_Comment N [Aut omated message] The = Monocytes #) system which generated this result tra nsmitted reference range : <=0.8. The reference r giulia was not used to int erpret this result as normal/abnormal . [facility] NortheastCmqnemqLAUTNFUYQK3560-26-83 23:35:00 Test Item Value Reference Range Interpretation Comments Lymphocytes # (test code = Lymphocytes 2.6 1.0-5.5 N #) [facility] NortheastOreqeieKRJLWNRMMP7441-06-48 23:35:00 Test Item Value Reference Range Interpretation Comments Eosinophils # (test code 0.3 See_Comment N [A utomated message] The = Eosinophils #) system whic h generated this result tra nsmitted reference range : <=0.5. The reference r giulia was not used to int erpret this result as normal/abnormal . [facility] NortheastAtmpncjIRXCPOWRKX0641-63-60 23:35:00 Test Item Value Reference Range Interpretation Comments Eosinophils (test code = 4.0 See_Comment N [A utomated message] The Eosinophils) system which ge nerated this result tra nsmitted reference range : <=4.0. The reference r giulia was not used to int erpret this result as normal/abnormal . [place] [address]-06-16 23:35:00 Test Item Value Reference Range Interpretation Comments Basophils (test code = 0.6 See_Comment N [Aut omated message] The Basophils) system which ge nerated this result tra nsmitted reference range : <=1.0. The reference r giulia was not used to int erpret this result as normal/abnormal . [facility] NortheastCubekwgEVVKZLJKAV5074-47-69 23:35:00 Test Item Value Reference Range Interpretation Comments Monocytes (test code = Monocytes) 9.9 2.0-12.0 N [facility] NortheastUpqsvjkHWTJLTAFLO0257-13-71 23:35:00 Test Item Value Reference Range Interpretation Comments Segs (test code = Segs) 55.5 45.0-75.0 N [facility] NortheastWislsanDYQBZUBMDK9434-54-76 23:35:00 Test Item Value Reference Range Interpretation Comments Lymphocytes (test code = Lymphocytes) 30.0 20.0-40.0 N [facility] NortheastJfdkbyvVWACMPMHJM9536-14-13 23:35:00 Test Item Value Reference Range Interpretation Comments MPV (test code = MPV) 9.4 7.4-10.4 N [facility] NortheastLgrnrtfYTRDJCMZKX4072-28-09 23:35:00 Test Item Value Reference Range Interpretation Comments Hgb (test code = Hgb) 15.3 14.0-18.0 [facility]zlhwbjXMWDUPNIDE9241-78-81 23:35:00 Test Item Value Reference Range Interpretation Comments RBC (test code = RBC) 5.41 4.70-6.10 [facility]XhykmpxBERGGWHODJ4599-39-14 23:35:00 Test Item Value Reference Range Interpretation Comments WBC (test code = WBC) 8.5 3.7-10.4 N [facility]GpkmparAGWDSRMEOB1170-51-38 23:35:00 Test Item Value Reference Range Interpretation Comments Platelet (test code = Platelet) 219 133-450 N [facility]ZzdkuwbPXCTJVDDPH7410-73-18 23:35:00 Test Item Value Reference Range Interpretation Comments RDW (test code = RDW) 12.8 11.5-14.5 N [facility]OehhkhlITOKKPSTVA7686-02-75 23:35:00 Test Item Value Reference Range Interpretation Comments Hct (test code = Hct) 45.2 42.0-54.0 N [facility] NortheastOzdbnzuZIJGYVYRDV8435-21-80 23:35:00 Test Item Value Reference Range Interpretation Comments MCH (test code = MCH) 28.2 pg 27.0-31.0 N [facility]NcffzrvIMSLWRQUEC0886-21-86 23:35:00 Test Item Value Reference Range Interpretation Comments MCV (test code = MCV) 83.7 80.0-94.0 N [facility] NortheastFstzejfMGKSLXGJOI0394-80-38 23:35:00 Test Item Value Reference Range Interpretation Comments MCHC (test code = MCHC) 33.7 32.0-36.0 N [facility]ItqhtwwGTMQXSEEVO6185-71-42 23:35:00 Test Item Value Reference Range Interpretation Comments UA Sq Epi (test code = Rare /LPF (02/16/2012 N UA Sq Epi) 18:35:00) [facility] ClubZnanfxkJJIKZETCBW3452-39-09 23:35:00 Test Item Value Reference Range Interpretation Comments Micro? (test code = Performed (02/16/2012 N Micro?) 18:35:00) [facility]VaunvnmYEFGXQNLYO8642-28-33 23:35:00 Test Item Value Reference Range Interpretation Comments UA Bili (test code = Negative *NA*(02/16/2012 UA Bili) 18:35:00) [facility] ClubUeepkbfKHDKBWJELQ4931-87-83 23:35:00 Test Item Value Reference Range Interpretation Comments UA Leuk Est (test Negative (02/16/2012 N code = UA Leuk Est) 18:35:00) [facility] HospitalOodjavyZWSOJOEUCH6316-80-27 23:35:00 Test Item Value Reference Range Interpretation Comments UA Nitrite (test code Negative (02/16/2012 N = UA Nitrite) 18:35:00) [facility] HospitalMwhpwkaYSYVZAKMZP6045-74-41 23:35:00 Test Item Value Reference Range Interpretation Comments UA Urobilinogen (test code = UA 0.2 0.1-1.0 N Urobilinogen) [facility] HospitalDjornaiWESABKORMJ9797-60-22 23:35:00 Test Item Value Reference Range Interpretation Comments UA Blood (test code = Negative (02/16/2012 N UA Blood) 18:35:00) [facility] HospitalHzrisyiVBBGTTYBBO9694-96-22 23:35:00 Test Item Value Reference Range Interpretation Comments UA Ketones (test code Negative mg/dL = UA Ketones) *NA*(02/16/2012 18:35:00) [facility] HospitalIidwqguPMQXIDJWJM0487-27-32 23:35:00 Test Item Value Reference Range Interpretation Comments UA Glucose (test code Negative mg/dL N = UA Glucose) (02/16/2012 18:35:00) [facility] HospitalBoygdbfXOVCXLYBXS5029-34-39 23:35:00 Test Item Value Reference Range Interpretation Comments UA Turbidity (test code = Clear (02/16/2012 N UA Turbidity) 18:35:00) [facility] HospitalWtcwnakMAHUPUMGTM6577-00-28 23:35:00 Test Item Value Reference Range Interpretation Comments UA Spec Grav (test code = UA Spec 1.025 1 N Grav) [facility] HospitalArahovuPKFIHPMUUP6569-00-19 23:35:00 Test Item Value Reference Range Interpretation Comments UA Protein (test code Negative mg/dL N = UA Protein) (02/16/2012 18:35:00) [facility] HospitalSttpbguQFGOSWXGXZ7296-69-82 23:35:00 Test Item Value Reference Range Interpretation Comments UA pH (test code = UA pH) 6.0 1 5.0-8.0 N [facility] HospitalUqutxnlUQMLIOTSVA3826-41-60 23:35:00 Test Item Value Reference Range Interpretation Comments UA Color (test code = Yellow *NA*(02/16/2012 UA Color) 18:35:00) [facility] CenterIyvmwgrFROSTBIFI9957-41-87 19:30:00 Test Item Value Reference Range Interpretation Comments Lipase Lvl (test code = Lipase Lvl) 115.0 73-393 N [facility]MulljozUODSZLPPN3292-92-74 19:30:00 Test Item Value Reference Range Interpretation Comments AGAP (test code = AGAP) 13.7 10.0-20.0 N [facility]IovpyltFVYDRQDHM2287-43-85 19:30:00 Test Item Value Reference Range Interpretation Comments A/G Ratio (test code = A/G Ratio) 0.9 1 0.7-1.6 N [facility] PasoVorrjrhGEIZQEZRU2058-29-53 19:30:00 Test Item Value Reference Range Interpretation Comments Globulin (test code = Globulin) 4.6 2.0-4.0 H [facility] PasoHmdvojzRNZMSWPOM1046-72-52 19:30:00 Test Item Value Reference Range Interpretation Comments B/C Ratio (test code = B/C Ratio) 11.0 1 6-25 N [facility] PasoNotnmikSFUVNPCWP6823-73-66 19:30:00 Test Item Value Reference Range Interpretation Comments Bili Total (test code = Bili Total) 0.7 0.2-1.3 N [facility] CenterSidxlnyLZWUOAYVM4054-56-89 19:30:00 Test Item Value Reference Range Interpretation Comments AST (test code = AST) 25.0 See_Comment N [Auto mated message] The system which ge nerated this result transmit javi reference range : <=37. The reference range was not used to interpr et this result as cyndi l/abnormal. [facility] CenterWigovdyLFHLOJADN0045-17-13 19:30:00 Test Item Value Reference Range Interpretation Comments ALT (test code = ALT) 57.0 See_Comment N [Auto mated message] The system which ge nerated this result transmit javi reference range : <=65. The reference range was not used to interpr et this result as cyndi l/abnormal. [facility] CenterOszugogBOHHVNAMV4391-21-40 19:30:00 Test Item Value Reference Range Interpretation Comments Albumin Lvl (test code = Albumin Lvl) 4.3 3.5-5.0 N [facility] PasoQpzqomiMEDJKNJVY2183-06-31 19:30:00 Test Item Value Reference Range Interpretation Comments Alk Phos (test code = Alk Phos) 118.0 39-136 N [facility] PasoXkqjmzzWSKVDLISC9505-78-86 19:30:00 Test Item Value Reference Range Interpretation Comments CO2 (test code = CO2) 29.0 24-32 N [facility] PasoRikvodtKSOREGUJL9947-40-66 19:30:00 Test Item Value Reference Range Interpretation Comments Total Protein (test code = Total 8.9 6.4-8.4 H Protein) [facility] PasoBoqnrfeBGCTUFZSL1716-76-37 19:30:00 Test Item Value Reference Range Interpretation Comments Calcium Lvl (test code = Calcium Lvl) 9.2 8.5-10.5 N [facility] PasoGxrsbyiHSRNMUKUH4710-73-90 19:30:00 Test Item Value Reference Range Interpretation Comments Potassium Lvl (test code = Potassium 3.7 3.5-5.1 N Lvl) [facility] PasoMjzwagwZKNEXWUXV6193-55-37 19:30:00 Test Item Value Reference Range Interpretation Comments Chloride Lvl (test code = Chloride Lvl) 100.0 95-109 N [facility] PasoPkphkbdWDEDALTUG2954-24-53 19:30:00 Test Item Value Reference Range Interpretation Comments BUN (test code = BUN) 8.0 7-22 N [facility] PasoMblaushKRGZYXJMB7727-30-10 19:30:00 Test Item Value Reference Range Interpretation Comments Glucose Lvl (test code = Glucose Lvl) 79.0 [facility] PasoQmjatunNWFMHVNLI7522-22-39 19:30:00 Test Item Value Reference Range Interpretation Comments Sodium Lvl (test code = Sodium Lvl) 139.0 135-145 N [facility] PasoHkzfuhsXGCIPGWOT2895-11-64 19:30:00 Test Item Value Reference Range Interpretation Comments Creatinine Lvl (test code = Creatinine 0.7 0.5-1.4 N Lvl) [facility]DlafjkgZUKOJXFCTZ0055-43-13 19:30:00 Test Item Value Reference Range Interpretation Comments WBC (test code = WBC) 6.5 3.7-10.4 N [facility]QwuanolKKRSPGSCDD4270-60-30 19:30:00 Test Item Value Reference Range Interpretation Comments Hct (test code = Hct) 45.1 42.0-54.0 N [facility]IidwyvlNVITIXYVED8166-84-06 19:30:00 Test Item Value Reference Range Interpretation Comments Hgb (test code = Hgb) 15.6 14.0-18.0 N [facility] NortheastKtzrxccJUCOMEYBTA1792-09-60 19:30:00 Test Item Value Reference Range Interpretation Comments RBC (test code = RBC) 5.52 4.70-6.10 N [facility] NortheastRbwdegcWZPAIWJTCH5777-83-52 19:30:00 Test Item Value Reference Range Interpretation Comments Platelet (test code = Platelet) 232.0 133-450 N [facility] NortheastTmvotpcVZVZAIVXXI4729-78-21 19:30:00 Test Item Value Reference Range Interpretation Comments MPV (test code = MPV) 8.7 7.4-10.4 N [facility] NortheastDkedqtcIIRECXPHTX7866-78-47 19:30:00 Test Item Value Reference Range Interpretation Comments MCHC (test code = MCHC) 34.5 32.0-36.0 N [facility] NortheastPutwyfdNYRKPMDDSJ8735-71-46 19:30:00 Test Item Value Reference Range Interpretation Comments RDW (test code = RDW) 13.4 11.5-14.5 N [facility]PgcflihEAUJGQOAKF8077-32-05 19:30:00 Test Item Value Reference Range Interpretation Comments MCV (test code = MCV) 81.7 80.0-94.0 N [facility] NortheastHpfoslzOJCUVLORRL0155-47-54 19:30:00 Test Item Value Reference Range Interpretation Comments MCH (test code = MCH) 28.2 pg 27.0-31.0 N [facility] NortheastPtmweigOLOJNHOGMF2537-95-04 19:30:00 Test Item Value Reference Range Interpretation Comments Basophils # (test code 0.1 See_Comment N [Aut omated message] The = Basophils #) system which generated this result tra nsmitted reference range : <=0.2. The reference r giulia was not used to int erpret this result as normal/abnormal . [facility]HdqzdqzETGHPFFCJQ3908-32-99 19:30:00 Test Item Value Reference Range Interpretation Comments Eosinophils # (test code 0.3 See_Comment N [A utomated message] The = Eosinophils #) system whic h generated this result tra nsmitted reference range : <=0.5. The reference r giulia was not used to int erpret this result as normal/abnormal . [facility]PxcwozdUHUCLACCCX3733-85-44 19:30:00 Test Item Value Reference Range Interpretation Comments Lymphocytes # (test code = Lymphocytes 1.6 1.0-5.5 N #) [facility]VynjoakVIYPGCQGZN8073-46-79 19:30:00 Test Item Value Reference Range Interpretation Comments Segs-Bands # (test code = Segs-Bands #) 3.5 1.5-8.1 N [facility] NortheastWyfphtpQYAVTFUMWD3215-38-59 19:30:00 Test Item Value Reference Range Interpretation Comments Basophils (test code = 1.5 See_Comment H [Aut omated message] The Basophils) system which ge nerated this result tra nsmitted reference range : <=1.0. The reference r giulia was not used to int erpret this result as normal/abnormal . [facility] NortheastAoaslvdLPWBKANMPK3943-76-86 19:30:00 Test Item Value Reference Range Interpretation Comments Eosinophils (test code = 4.4 See_Comment H [A utomated message] The Eosinophils) system which ge nerated this result tra nsmitted reference range : <=4.0. The reference r giulia was not used to int erpret this result as normal/abnormal . [facility] NortheastQyilagyIIKVJITMBH7223-92-40 19:30:00 Test Item Value Reference Range Interpretation Comments Segs (test code = Segs) 54.0 45.0-75.0 N [facility] NortheastIxkdxrwFJSVPCQLCQ1816-29-63 19:30:00 Test Item Value Reference Range Interpretation Comments Monocytes # (test code 1.0 See_Comment H [Aut omated message] The = Monocytes #) system which generated this result tra nsmitted reference range : <=0.8. The reference r giulia was not used to int erpret this result as normal/abnormal . [facility] NortheastTjewtajOFQTHXCYMI5175-73-61 19:30:00 Test Item Value Reference Range Interpretation Comments Monocytes (test code = Monocytes) 15.9 2.0-12.0 H [facility] NortheastMptfoxbIOJWFNCRZZ4446-95-51 19:30:00 Test Item Value Reference Range Interpretation Comments Lymphocytes (test code = Lymphocytes) 24.2 20.0-40.0 N [facility] HospitalWtfcipoBEBORKMZEN4673-38-94 19:30:00 Test Item Value Reference Range Interpretation Comments UA Sq Epi (test code = None Seen (07/17/2011 N UA Sq Epi) 13:30:00) ?? [facility] HospitalQgpzgtlVVGYKZLVFU3125-09-39 19:30:00 Test Item Value Reference Range Interpretation Comments UA RBC (test 0-2 /HPF See_Comment N [Automated mes vaishali] code = UA RBC) (07/17/2011 The system wh ich 13:30:00) ?? generated this result transmitted ref erence range: <=2. The reference range was not used to int erpret this result as normal/abnormal . [facility] CenterWtrzjerACUZKVSFET5895-36-23 19:30:00 Test Item Value Reference Range Interpretation Comments UA Bacteria (test code = None Seen (07/17/2011 N UA Bacteria) 13:30:00) ?? [facility] CenterHlokqrfXHNLGFOJWM5959-63-95 19:30:00 Test Item Value Reference Range Interpretation Comments UA WBC (test code = UA None Seen (07/17/2011 N WBC) 13:30:00) ?? [facility] CenterZblowlhCJMAYNBBXJ3593-73-27 19:30:00 Test Item Value Reference Range Interpretation Comments Micro? (test code = Performed (07/17/2011 N Micro?) 13:30:00) ?? [facility] CenterXjengbkPJKSTIUZQQ6760-80-85 19:30:00 Test Item Value Reference Range Interpretation Comments UA Leuk Est (test Negative (07/17/2011 N code = UA Leuk Est) 13:30:00) ?? [facility] CenterPvphromHVMQFRUHAV7236-61-19 19:30:00 Test Item Value Reference Range Interpretation Comments UA Nitrite (test code Negative (07/17/2011 N = UA Nitrite) 13:30:00) ?? [facility] CenterCbqhgfqWQELNPZUOE0671-75-46 19:30:00 Test Item Value Reference Range Interpretation Comments UA Urobilinogen (test code = UA 0.2 0.1-1.0 N Urobilinogen) [facility] CenterDgjzdbzBCVTTNOYTW9629-02-54 19:30:00 Test Item Value Reference Range Interpretation Comments UA Blood (test code = Negative (07/17/2011 N UA Blood) 13:30:00) ?? [facility]OjwiskwTAGFFVDSVA2036-16-50 19:30:00 Test Item Value Reference Range Interpretation Comments UA Ketones (test code Negative mg/dL = UA Ketones) *NA*(07/17/2011 13:30:00) ?? [facility] CenterRdorwkpLTGZWOTQPS4130-63-87 19:30:00 Test Item Value Reference Range Interpretation Comments UA Bili (test code = Negative *NA*(07/17/2011 UA Bili) 13:30:00) ?? [facility] ClubUtgadjjGHWIXMWUMY5624-90-15 19:30:00 Test Item Value Reference Range Interpretation Comments UA Glucose (test code Negative mg/dL N = UA Glucose) (07/17/2011 13:30:00) ?? [facility] ClubIxaxrqnFEGWGNRJMR9141-28-64 19:30:00 Test Item Value Reference Range Interpretation Comments UA Protein (test code Negative mg/dL N = UA Protein) (07/17/2011 13:30:00) ?? [facility] HospitalQowfcubOWNJODMKQD7205-46-88 19:30:00 Test Item Value Reference Range Interpretation Comments UA pH (test code = UA pH) 6.0 1 5.0-8.0 N [facility] HospitalZeaotssDXDEAUWIKI2256-09-99 19:30:00 Test Item Value Reference Range Interpretation Comments UA Spec Grav (test code = UA Spec 1.025 1 N Grav) [facility] HospitalIfzmwbnYFWWXXDBKB3392-56-88 19:30:00 Test Item Value Reference Range Interpretation Comments UA Turbidity (test code = Clear (07/17/2011 N UA Turbidity) 13:30:00) ?? [facility] HospitalUznephwPWXLYFHPSW3761-62-12 19:30:00 Test Item Value Reference Range Interpretation Comments UA Color (test code = Yellow *NA*(07/17/2011 UA Color) 13:30:00) ?? [facility]
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
[2022-07-14] MEDS ORDERED: LIDOCAINE 1% MPF 5 ML VIAL ONE (17:28)
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
[2022-07-14 18:00] VITALS: TEMP 98.3; O2SAT 100
[2022-07-14 18:04] VITALS: BP 128/94
== END 2022-07-14 17:56 | disposition home or self-care (01) ==
LOC: ER 15:50
PROC: 0JQJ0ZZ Repair Right Hand Subcutaneous Tissue and Fascia, Open Approach (ICD-10-PCS; principal; 2022-07-14)
DX: S61.210A Laceration without foreign body of right index finger without damage to nail, initial encounter (principal); G44.319 Acute post-traumatic headache, not intractable; I10 Essential (primary) hypertension; J45.909 Unspecified asthma, uncomplicated
CPT/HCPCS: 70450; 99284; J2001

== ENCOUNTER 2023-07-31 12:27 | Emergency (ER) | payer SELFPAY ==
--- OUTSIDE RECORDS SUMMARY | 2023-07-31 12:32 | XMS REPORT | Continuity of Care Document ---
:1995 Author Organization [facility] t Address [address] [place] [address] Care Team Providers Name Role Phone Bull Covarrubias Admitting Clinician Unavailable Payers Payer Name Policy Type Policy Number Effective Date Expiration Date S ource Problems Condition Condition Condition Status Onset Resolution Last Treating Co mments Source Name Details Category Date Date Treatment Clinician Date S/P S/P Disease Active 2015-09 Overview: Too laparoscop laparoscop 10-08 rankur ic ic 00:00: g of this appendecto appendecto 00 note my my might be different from the original. See op report and path report-ou tside media tab 2010-no mention of crohns in record Chest Chest Disease Active 2015-09 Overview: Too pain, pain, 09-03 rankur unspecifie unspecifie 00:00: g of this d d 00 note might be different from the original. Outside records- media tab, ER Mem Joey Jun, not admitted, no med ordered. cxr report and ekg's, lab included CHEST PAIN CHEST Diagnosis Active 2015-092016-07-02 Memoria PAIN 0-15 14:47:00 l Active 00:00: Joey 06/16/2016 00 [facility] Mixed Mixed Disease Active 2015-09 [facility] hyperlipid hyperlipid 0-14 He alth emia emia 00:00: 00 Mastoiditi Mastoiditi Disease Active H arris s of left s of left 4-10 Heal th side side 00:00: 00 CONGESTION CONGESTIO Diagnosis Active 2012-05-20 Memoria BODY ACHES N BODY 05-19 08:51:00 l ACHES 00:00: [place] Active 00 05/19/2012 [facility] ABD PAIN ABD PAIN Diagnosis Active 2012-02-28 Memoria Active 02-15 15:05:00 l 02/16/2012 00:00: Adi n [address] ABDOMINAL ABDOMINAL Diagnosis Active 2010-092011-09-18 Memoria PAIN ON PAIN ON 09-16 16:06:00 l RIGHT SIDE RIGHT SIDE 00:00: He rmann Active 07/17/2011 [facility] ANKLE PAIN ANKLE Diagnosis Active 2011-05-27 Memoria PAIN 05-26 04:53:00 l Active 00:00: Ojey 05/26/2011 00 [facility] Body mass Body mass Problem Active 2021-08-10 Memoria index index 05:10:22 l [BMI] [BMI] Joey 40.0-44.9, 40.0-44.9, adult adult Active Problem 08/10/2021 [facility] Seasonal Seasonal Problem Active 2021-08-10 Memoria allergic allergic 05:10:22 l reaction reaction Adi n Active Problem 08/10/2021 [facility], [facility] Urticarial Urticaria Problem Active 2021-08-10 Memoria rash l rash 05:10:22 l Active [place] Problem 08/10/2021 [facility] Screening Screening Diagnosis Active 2021-08-10 Memoria for for 05:10:22 l endocrine endocrine Herm andres disorder disorder Active Diagnosis 08/10/2021 [facility] Living [facility] Screening Screening Diagnosis Active 2021-08-10 Memoria for lipid for lipid 05:10:22 l disorders disorders Herm andres Active Diagnosis 08/10/2021 [facility] Screening Diagnosis Active 2021-08-10 Memoria for Screening 05:10:22 l diabetes for [place] mellitus diabetes mellitus Active Diagnosis 08/10/2021 [facility] Moderate Moderate Problem Active 2021-08-10 Memoria persistent persistent 05:10:22 l asthma, asthma, [place] unspecifie unspecifie d whether d whether complicate complicate d d Active Problem 08/10/2021 [facility] Morbid Morbid Problem Active 2021-08-10 Emmett khalif (severe) (severe) 05:10:22 l obesity obesity Joey due to due to excess excess calories calories Active Problem 08/10/2021 [facility] Primary Primary Problem Active 2021-08-10 M emoria hypertensi hypertensi 05:10:22 l on on Active Joey Problem 08/10/2021 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 Laparoscop Laparosco Problem Active 2012-05-22 Memoria ic pic 09:11:04 l appendecto appendecto He rmann my my Active Problem 05/22/2012 [facility] Crohn's Crohn's Problem Active 2016-06-20 M emoria disease disease 00:20:00 l (disorder) (disorder) He rmann Active Problem 06/20/2016 [facility] Asthma Asthma Problem Active 2016-06-20 Emmett khalif (disorder) (disorder) 00:20:00 l Active [place] Problem 06/20/2016 [facility] Gastroesop Gastroeso Diagnosis Active 2021-08-10 Memoria hageal phageal 05:10:22 l reflux reflux [place] disease, disease, unspecifie unspecifie d whether d whether esophagiti esophagiti s present s present Active Diagnosis 08/10/2021 [facility] Laparoscop Laparosco Problem Active 2016-06-20 Memoria ic pic 00:20:00 l appendecto appendecto He rmann my my (procedure (procedure ) ) Active Problem 06/20/2016 [facility] APPENDICIT APPENDICI Diagnosis Active 2011-09-18 Memoria IS NOS TIS NOS 16:06:00 l Active Adi Harding History of Past Illness Condition Condition Condition Status Onset Resolution Last Treating Co mments Source Name Details Category Date Date Treatment Clinician Date Discharge Discharge Problem 2015-092016-06-20 2016-06-20 Memoria Diagnosis: Diagnosis: 0-16 00:20:00 00:20:00 l Chest wall Chest wall 05:00: Edgardo kirkpatrick pain pain 00 06/17/2016 6 [facility] Allergies, Adverse Reactions, Alerts Allergy Allergy Status Severity Reaction(s) Onset Inactive Treating Comm ents Source Name Type Date Date Clinician Grass Grass Active rash 2020-09 Memoria Pollen(K Pollen(K 2-03 l -O-R-T-S -O-R-T-S 00:00: Adi n wt Johann) wt Johann) 00 nuts nuts Active rash 2020-09 Memoria 2-03 l 00:00: [place] 00 N.K.D.A. N.K.D.A. Active Info Not 2020-09 Emmett khalif Available 09-12 l 00:00: [place] 00 No Known DA Active U 2017-09 [facility] Allergie 10-10 [place] s 00:[facility]: [facility] No Known DA Active U 2017-09 [facility] Allergie 10-10 [place] s 00:00: [facility] 00 are [facility] Family History Family Member Diagnosis Comments Start Date Stop Date Source Natural sister Asthma [facility] Social History Social Habit Start Date Stop Date Quantity Comments Source Sexual orientation [facility] Alcohol intake 2021-12-27 2021-12-27 Current [facility] 00:00:00 00:00:00 non-drinker of alcohol (finding) History of Social 2021-12-27 2021-12-27 [facility] function 00:00:00 00:00:00 Sex Ass[birth year] At [birth year] [facility] 00:00:00 00:00:00 Smoking Status Start Date Stop Date Source Social History [facility] Medications Ordered Filled Start Stop Current Ordering [...] MANDALAPU at bedtime l 05:10: as needed Montelukast 2020-09 Yes TAPASYA 1 tablet Memoria [...] Memoria e Sodium 2-03 MANDALAPU l 00:00: Pantoprazol 2020-09 Yes TAPASYA 1 tablet Memoria e Sodium 2-03 MANDALAPU l 00:00: albuterol Yes Wheeze 2{puff} Inhale 2 Gage (VENTOLIN 1-30 Puffs by YaSabe HFA,PROVENT 00:00: mouth 4 [place] 00 times HFA,PROAIR daily as HFA) 90 needed for mcg/actuati Wheezing on inhaler or Shortness of Breath. dexlansopra Yes Abdominal 30mg QD Take 1 Too zole 1-30 pain, capsule by [facility] (DEXILANT) 00:00: epigastric mouth 30 mg 00 daily. delayed release capsule ibuprofen Yes Temporomand 400mg Take 1 Gage (MOTRIN) 1-30 ibular tablet by [facility] th 400 mg 00:00: dysfunction mouth tablet 00 syndrome every 6 hours as needed for Pain. ibuprofen 2015-09 Yes 600 mg = 1 Me moria 600 mg oral 0-16 tab, PO, l tablet 05:13: Q8H, PRN pain, X 5 day, # 15 tab, 0 Refill(s) Cyclobenzap 2015-09 Yes 10 mg = 1 M emoria rine 0-16 tab, PO, l hydrochlori 05:13: TID, X 5 He rmann de 10 MG 00 day, # 15 Oral Tablet tab, 0 [Flexeril] Refill(s) Flexeril 2015-09 No Notes: Memoria 0-16 (Same As: l 02:48: Flexeril) ketOROLAC 2015-09 No 4 days Memor ia 30 mg/mL 0-16 l injectable 02:47: MEDICATION H erm solution WASTE Product Size: 30 mg Product Wasted: ___ mg Saline 2015-09 No Notes: Memoria Flush 0.9% 0-16 (Same as: l 02:08: BD Posiflush) benzocaine- Yes AOM (acute 3[drp] Administer Gage antipyrine 4-05 otitis 3 Drops in H ealth (AURALGAN) 00:00: media) left ear 4 5.4-1.4 % 00 times otic daily as solution needed for Pain. Debrox Yes Isac 5 drp, Memoria Earwax -18 Renteria RIGHT EAR, l Removal Kit 05:25: TID, 15 Her cruz 6.5% otic 20 ml, solution Substituti on Allowed, Maintenanc e, SOLN Mucinex DM Yes Isac 1 tab, PO, M emoria Max 9-18 Renteria BID, 14 l Strength 05:25: tab, [place] oral 11 Substituti tablet, on extended Allowed, release Maintenanc e, ERTAB Ultracet Yes Davion Ramirez 1 tab, PO, M emoria oral tablet 6-17 [place] Q4H, PRN, l 01:54: 12 tab, Joey 27 Pain, Substituti on Allowed, Maintenanc e [place] 5/325 No Davion Ramirez 1 tab, Me moria oral tablet 6-17 [place] Route: PO, l 00:17: Drug Form: [place] 00 TAB, ONCE, Start date: 02/16/12 19:17:00, Stop date: 02/16/12 19:17:00 GI cocktail No Davion Ramirez 30 mL, Me moria 6-17 [place] Route: PO, l 00:17: Drug Form: Joey 00 SUSP, ONCE, STAT, Start date: 02/16/12 19:17:00, Stop date: 02/16/12 19:17:00 Saline 2011-0 No Davion K 5 ml, Memoria Flush 0.9% 6-16 [place] Route: l 23:20: IVP, Drug [place] 00 Form: INJ, PRN, PRN Line Flush, Start date: 02/16/12 18:20:00, Duration: 1 doses or times, Stop date: Limited # of times morphine 2010-09 No Chano 2 mg, Memori a Sulfate 1-16 Feng Route: l 05:07: Suarez-Za IVP, ONCE, H ermann 00 veliz Start date: 07/17/11 23:07:00, Stop date: 07/17/11 23:07:00 Zofran 2010-09 No Sergio 4 mg, 2 Emmett khalif 1-16 Madhav mL, Route: l 05:01: Vickey IVP, Drug Adi n 00 form: INJ, [...] Sergio 15 mg, 0.5 Memoria 30 mg/mL 1-16 Madhav mL, Route: l injectable 05:00: Conway IV, Drug H ermann solution 00 form: INJ, Q6H, PRN Pain, Start date: 07/17/11 23:00:00, Duration: 4 day, Stop date: 07/21/11 22:59:00 morphine 2010-09 No Sergio 2 mg, 1 Me moria Sulfate 1-16 Madhav mL, Route: l 05:00: Conway IV, Drug Joey 00 form: INJ, Q2H, PRN Pain, Start date: 07/17/11 23:00:00, Duration: 30 day, Stop date: 08/16/11 22:59:00 BD Normal 2010-09 No Sergio 30 mL, Me moria Saline 1-16 Madhav Route: IV, l Flush 05:00: Vickey Drug Form: Herm andres 00 INJ, PRN, PRN Line Flush, Start date: 07/17/11 23:00:00, Duration: 30 day, Stop date: 08/16/11 22:59:00 BD Normal 2010-09 No Sergio 10 mL, Me moria Saline 1-16 Madhav Route: IV, l Flush 04:59: Conway Drug Form: Herm andres 00 INJ, PRN, PRN Line Flush, Start date: 07/17/11 22:59:00, Duration: 30 day, Stop date: 08/16/11 22:58:00 morphine 2010-09 No Chano 2 mg, Memori a Sulfate 1-16 Feng Route: l 04:52: Suarez-Za IVP, ONCE, H ermann 00 veliz Start date: 07/17/11 22:52:00, Stop date: 07/17/11 22:52:00 acetaminoph 2010-09 No Chano 1,000 mg, Memoria en 10 mg/mL -16 Feng Route: IV, l intravenous 04:45: Suarez-Za Drug form: Joey solution 00 veliz INJ, ONCE, PRN Pain, For > or = 50 kg, Start date: 07/17/11 22:45:00 morphine 2010-09 No Chano 2 mg, 1 Emmett khalif Sulfate 1-16 Feng mL, Route: l 04:42: Suarez-Za IVP, Drug He rmann veliz form: INJ, ONCE, Start date: 07/17/11 22:42:00, Stop date: 07/17/11 22:42:00 Mefoxin 2010-09 No Sergio 1 gm, Memor ia 1-16 Madhav Route: l 03:00: Conway IVPB, Joey 00 ONCALL, Start date: 07/17/11 21:00:00, Duration: 12 hr, Stop date: 07/18/11 8:59:00 Zosyn 2010-09 No Luciano G 3.375 gm, Mem oria 1-15 LaPell 100 mL, l 23:31: Route: Joye 00 IVPB, Drug form: PDR/INJ, ONCE, Priority: STAT, Start date: 07/17/11 17:31:00, Stop date: 07/17/11 17:31:00 Iohexol 2010-09 No Luciano G 50 ml, Emmett khalif 240mg/ml 1-15 [place] Route: PO, l 19:51: ONCE, Joey 00 STAT, Start date: 07/17/11 13:51:00, Stop date: 07/17/11 13:51:00 ketorolac 2010-09 No Luciano G 30 mg, 1 Memoria 1-15 [place]ell mL, Route: l 19:17: IVP, Drug [place] 00 form: INJ, ONCE, Priority: STAT, Start date: 07/17/11 13:17:00, Stop date: 07/17/11 13:17:00 Sodium 2010-09 No Luciano G 500 mL, Emmett khalif Chloride 1-15 [place] Rate: l 0.9% 19:17: 1,000 Joey (Bolus) IV 00 ml/hr, 500 mL Infuse over: 0.5 hr, Route: IV, Total Volume: 500, Bolus dose, Priority: STAT, Start date: 07/17/11 13:17:00, Duration: 1 doses or times, Stop date: 07/17/11 13:46:00 Immunizations Ordered Immunization Filled Immunization Date Status Commen ts Source Name Name DTaP Diphtheria, Unknown Completed [facility] Tetanus, Acellular, Pertussis DTaP Diphtheria, Unknown Completed [facility] Tetanus, Acellular, Pertussis DTaP Diphtheria, Unknown Completed [facility] Tetanus, Acellular, Pertussis DTaP Diphtheria, Unknown Completed [facility] Tetanus, Acellular, Pertussis Hepatitis A Vaccine Unknown Completed [facility] Hepatitis A Vaccine Unknown Completed [facility] Hepatitis B Vaccine Unknown Completed [facility] Hepatitis B Vaccine Unknown Completed [facility] Hepatitis B Vaccine Unknown Completed [facility] Hepatitis B Vaccine Unknown Completed [facility] Hib Haemophilus Unknown Completed [facility] Influenzae Type B Hib Haemophilus Unknown Completed [facility] Influenzae Type B Hib Haemophilus Unknown Completed [facility] Influenzae Type B Hib Haemophilus Unknown Completed [facility] Influenzae Type B MMR Measles, Mumps, Unknown Completed [facility] Rubella Vaccine MMR Measles, Mumps, Unknown Completed [facility] Rubella Vaccine Poliovirus Ipv Unknown Completed [facility] Poliovirus Ipv Unknown Completed [facility] Poliovirus Ipv Unknown Completed [facility] Poliovirus Ipv Unknown Completed [facility] Tdap Tetanus, Unknown Completed [facility] diphtheria, acellular pertussis Vaccine Varicella Vaccine Pedi Unknown Completed [facility] Varicella Vaccine Pedi Unknown Completed [facility] MCV4 Meningococcal Unknown Completed [facility] Conjugate (Menactra) Human Papillomavirus Unknown Completed [facility] Vaccine Influenza Vaccine Unknown Completed [facility] Vital Signs Vital Name Observation Time Observation Value Comments Source Weight 2021-08-04 21:45:00 [facility] [place] Height 2021-08-04 21:45:00 [facility] [place] Heart Rate 2021-08-04 21:45:00 [facility] [place] Temperature Oral (F) 2021-08-04 21:45:00 97 F [facility] [place] Diastolic (mm Hg) 2021-08-04 21:45:00 Mem orial [place] Systolic (mm Hg) 2021-08-04 21:45:00 Emmett rial Joey Weight 2021-07-13 21:30:00 [facility] [place] Height 2021-07-13 21:30:00 [facility] [place] Heart Rate 2021-07-13 21:30:00 [facility] [place] Temperature Oral (F) 2021-07-13 21:30:00 97 F [facility] [place] Diastolic (mm Hg) 2021-07-13 21:30:00 Mem orial [place] Systolic (mm Hg) 2021-07-13 21:30:00 Emmett rial [place] Systolic (mm Hg) 2016-06-17 05:55:00 Emmett rial [place] Diastolic (mm Hg) 2016-06-17 05:55:00 Mem orial [place] Respitory Rate 2016-06-17 05:55:00 Memori al [place] Respitory Rate 2016-06-17 04:21:00 Memori al Joey Systolic (mm Hg) 2016-06-17 04:21:00 Emmett rial [place] Diastolic (mm Hg) 2016-06-17 04:21:00 Mem orial [place] Respitory Rate 2016-06-17 02:30:00 Memori al [place] Systolic (mm Hg) 2016-06-17 02:30:00 Emmett rial [place] Diastolic (mm Hg) 2016-06-17 02:30:00 Mem orial [place] Height 2016-06-17 02:07:00 174 cm [facility] Joey BMI Calculated 2016-06-17 02:07:00 Memori al [place] Weight 2016-06-17 02:07:00 [facility] [place] Temperature Oral (F) 2016-06-17 02:07:00 98.5 F [facility] [place] Heart Rate 2016-06-17 02:07:00 [facility] [place] Height 2012-05-20 04:37:00 172.72 cm [facility] [place] Weight 2012-05-20 04:37:00 [facility] [place] Weight 2012-02-16 22:26:00 [facility] [place] Height 2012-02-16 22:26:00 172.72 cm [facility] Joey Respitory Rate 2011-07-18 18:37:00 Memori al [place] Systolic (mm Hg) 2011-07-18 18:37:00 Emmett rial [place] Diastolic (mm Hg) 2011-07-18 18:37:00 Mem orial [place] Temperature Oral (F) 2011-07-18 18:37:00 98.0 F [facility] [place] Heart Rate 2011-07-18 18:37:00 [facility] [place] Systolic (mm Hg) 2011-07-18 14:00:00 Emmett rial [place] Diastolic (mm Hg) 2011-07-18 14:00:00 Mem orial [place] Heart Rate 2011-07-18 14:00:00 [facility] [place] Temperature Oral (F) 2011-07-18 14:00:00 96.9 F [facility] Joey Respitory Rate 2011-07-18 14:00:00 Memori al [place] Respitory Rate 2011-07-18 08:50:00 Memori al [place] Systolic (mm Hg) 2011-07-18 08:50:00 Emmett rial [place] Temperature Oral (F) 2011-07-18 08:50:00 96.9 F [facility] Joey Heart Rate 2011-07-18 08:50:00 [facility] Joey Diastolic (mm Hg) 2011-07-18 08:50:00 Mem orial [place] Weight 2011-07-18 06:28:00 [facility] [place] Height 2011-07-17 17:11:00 167.64 cm [facility] Joey Weight 2011-07-17 17:11:00 [facility] Joey Weight 2011-05-27 08:45:00 [facility] Joey Respitory Rate 2011-05-27 08:45:00 Aftab Lee Heart Rate 2011-05-27 08:45:00 [facility] Joey Diastolic (mm Hg) 2011-05-27 08:45:00 Elias robins Joey Systolic (mm Hg) 2011-05-27 08:45:00 Emmett rial Joey Procedures Procedure Date / Time Performed Performing Clinician Sour e [facility] Planned Activity Planned Date Details Comments Source Future Scheduled Test 2023-05-03 00:00:00 IMM Influenza [facility] Seasonal (>/= 19 yrs) [code = IMM Influenza Seasonal (>/= 19 yrs)] Future Scheduled Test 1995 00:00:00 COVID-19 Vaccine (#1) [facility] [code = COVID-19 Vaccine (#1)] Encounters Start End Encounter Admission Attending Care Care Encounter Source Date/Time Date/Time Type Type Clinicians Facility Department ID 2023-07-31 Outpatient [id number] Memoria 12:29:38 [id number] 2023-02-13 Emergency HFD HFD [id number] KARENA - 16:05:51 [facility] ent 2022-07-14 Outpatient [id number] Memoria 15:53:59 [id number] [place] [id number] 2020-05-25 Inpatient [facility] [id number] [facility] 22:04:00 07 [facility] 2021-08-04 2021-08-04 Outpatient [facility] [id number] eClinic 15:45:00 [facility] 2021-07-13 2021-07-13 Outpatient [facility] [id number] eClinic 15:30:00 15:30:00 Living Living alWork s Primary Primary Care, Care, [facility] 2017-04-19 2017-04-19 Outpatient [facility] [id number] [facility] 00:00:00 00:00:00 Health 2017-03-19 2017-03-19 Outpatient [facility] [id number] [facility] 00:00:00 00:00:00 Health 2017-03-13 2017-03-13 Outpatient [facility] [id number] [facility] 00:00:00 00:00:00 Health 2017-02-07 2017-02-07 Outpatient [facility] [id number] [facility] 00:00:00 00:00:00 [facility] 2016-06-17 2016-06-17 Emergency [facility] [id number] Memoria 02:00:00 05:59:00 giselle Cook 06 sandra [facility] 2012-05-19 2012-05-20 Emergency nullFlavo Not Sent [id number] Memoria 23:36:00 00:30:00 r 04 sandra Cook 2012-02-16 2012-02-16 Emergency nullFlavo Not Sent [id number] Memoria 17:24:00 21:22:00 r 03 sandra Cook 2011-07-17 2011-07-18 OU nullFlavo Not Sent [id number] Memoria 10:55:00 14:58:00 r 02 sandra Cook 2011-05-27 2011-05-27 Emergency nullFlavo Not Sent [id number] Memoria 03:43:00 05:30:00 r Yeison Cook Results Test Description Test Time Test [...] /LPF NONE SEEN - CT ABD PELVIS [id number] 23:55:00Patient Name: KATIE DEAN Unit No: [id number] EXAMS: CPT: [id number] CT ABD PELVIS W/CONT 04351 CT ABDOMEN AND PELVIS WITH IV CONTRAST: CLINICAL HISTORY: Abdominal pain COMPARISON: None. TECHNIQUE: Axial CT imaging of the abdomen and pelvis [...] DLP: 1786.25 mGy-cm IV Contrast: [id number] dose optimization is achieved for this examination by the use of a CT protocol in accordancewith ACR practice standards and adherence to scheduling clerk's recommendations with automated exposure control. at 2355 Reported and signed by: Inderjit Estrella MD CC: Suzy Farfan MD Technologist: ADI Enamorado CTDI: 31.66 DLP: 1786.25Trscr Dt/Tm: 05/25/2020 (2678) by:[email or web address] Orig Print D/T: S: 05/25/2020 (4042) BATCH NO: N/A Name: KATIE DEAN [facility] Phys: SYDNEE Corbin,Ric DO [address] [place] : 1995 Age: 24 Sex: [place] [address] Loc: N.ERS Exam Date: 05/25/2020 Status: REG ER PH: FAX: PAGE 1 Signed ReportCBC W/AUTO [id number] 22:56:00 Test Item Value Reference Range Interpretation [...] (test code = ADEQUATE ADEQUATE PLTEST) WBC [id number] 22:56:00 Test Item Value Reference Range Interpretation [...] (test GIANT PLATELETS SEEN NORMAL code = [id number]) BASIC METABOLIC [id number] 22:51:00 Test Item Value Reference Range Interpretation [...] mg/dL 8.5-10.5 N = CA) LIVER FUNCTION [id number] 22:51:00 Test Item Value Reference Range Interpretation [...] code = 64 U/L 42-121 N ALKP) [id number] 22:51:00 Test Item Value Reference Range Interpretation Comments LIPASE (test code = LIP) 20 IU/L 22-51 L BASIC METABOLIC [id number] 22:46:00 Test Item Value Reference Range Interpretation [...] mg/dL 8.5-10.5 N = CA) LIVER FUNCTION [id number] 22:46:00 Test Item Value Reference Range Interpretation [...] PHOSPHATASE (test code = U/L 42-121 ALKP) [id number] 22:46:00 Test Item Value Reference Range Interpretation Comments LIPASE (test code = LIP) 20 IU/L 22-51 L - XR CHEST 1 [id number] 22:44:00Patient Name: KATIE DEAN Angelic Unit No: [id number] EXAMS: CPT: [id number] XR CHEST 1 V 64193 CHEST 1 VIEW CLINICAL HISTORY: Cough COMPARISON: 08/09/2018. A single frontal view of the chest is submitted. FINDINGS: The cardiac silhouette is normal in size. Vascularity appears normal. The lungs are clear. No pleural effusion or pneumothorax is seen. No osseous abnormalities are seen. IMPRESSION: Negativechest radiograph. at 2244 Reported and signed by: Inderjit Estrella MD CC: Bull Covarrubias MD Technologist: Dionne Sevilla Time: DAP (Gy m2): Air Kerma (mGy): Trscr Dt/Tm: 05/25/2020 (2244) by:[email or web address] Orig Print D/T: S: 05/25/2020 (2246) BATCH NO: N/A Name: KATIE DEAN [facility] Phys: Ric Garland DO [address] [place] : 1995 Age: 24 Sex: [place] [address] Loc: N.ERS Exam Date: 05/25/2020 Status: PRE ER PH: FAX: PAGE 1 Signed Report- XR ABDOMEN [id number] 22:42:00Patient Name: KATIE DEAN Unit No: [id number] EXAMS: CPT: [id number] XR ABDOMEN 1V 09876 XR ABDOMEN, 1 VIEW HISTORY: PAIN. COMPARISON: None. FINDINGS: The abdominal gas pattern is nonobstructed. No s ignificant calcifications are encountered. Moderate amount of stool present. No free intraperitonealair is seen. Lung bases are clear. IMPRESSION: 1. No acute radiographic abnormality seen. at 2242 Reported and signed by: Shelby Nowak MD CC: Bull Covarrubias MD Technologist: Dionne Sevilla Time: DAP (Gy m2): Air Kerma (mGy): Trscr Dt/Tm: 05/25/2020 (2241) by:[email or web address] Orig Print D/T: S: 05/25/2020 (2244) BATCH NO: N/A Name: KATIE DEAN [facility] Phys: NARAS - Emerald,Ric DO [address] [place] : 1995 Age: 24 Sex: [place] [address] Loc: N.ERS Exam Date: 05/25/2020 Status: PRE ER PH: FAX: PAGE 1 Signed ReportCBC W/AUTO [id number] 22:41:00 Test Item Value Reference Range Interpretation [...] 10.8 fL 8.6-12.6 N = MPV) WBC [id number] 22:41:00 Test Item Value Reference Range Interpretation Comments TOTAL CELLS COUNTED (test code = TCC) #CELLS RBC MORPHOLOGY COMMENT (test code = NORMAL MOC) PLATELET MORPHOLOGY (test code = NORMAL PLTMORPH) CBC W/AUTO [id number] 22:38:00 Test Item Value Reference Range Interpretation [...] 10.8 fL 8.6-12.6 N = MPV) WBC [id number] 22:38:00 Test Item Value Reference Range Interpretation Comments TOTAL CELLS COUNTED (test code = TCC) #CELLS RBC MORPHOLOGY COMMENT (test code = NORMAL MOC) PLATELET MORPHOLOGY (test code = NORMAL PLTMORPH) CBC W/AUTO [id number] 22:27:00 Test Item Value Reference Range Interpretation [...] code = EO#) x10 3/uL 0.0-0.5 DR[facility] [id number] 03:49:00 Test Item Value Reference Range Interpretation Comments U Benzodia Scr (test Negative *NA*(06/16/16 code = U Benzodia Scr) 10:49 PM) [facility] [id number] 03:49:00 Test Item Value Reference Range Interpretation Comments U Phencyc Scr (test Negative *NA*(06/16/16 code = U Phencyc Scr) 10:49 PM) [facility] [id number] 03:49:00 Test Item Value Reference Range Interpretation Comments U Opiate Scr (test Negative *NA*(06/16/16 code = U Opiate Scr) 10:49 PM) [facility] [id number] 03:49:00 Test Item Value Reference Range Interpretation Comments U Cocaine Scr (test Negative *NA*(06/16/16 code = U Cocaine Scr) 10:49 PM) [id number] 03:49:00 Test Item Value Reference Range Interpretation Comments U Cannab Scr (test Negative *NA*(06/16/16 code = U Cannab Scr) 10:49 PM) [facility] [id number] 03:49:00 Test Item Value Reference Range Interpretation Comments U Amph Scr (test code Negative *NA*(06/16/16 = U Amph Scr) 10:49 PM) [facility] [id number] 03:49:00 Test Item Value Reference Range Interpretation Comments UDS Note (test code = See Note *NA*(06/16/16 UDS Note) 10:49 PM) [facility] [id number] 03:49:00 Test Item Value Reference Range Interpretation Comments UA Urobilinogen (test code = UA 0.2 0.1-1.0 Urobilinogen) [facility] [id number] 03:49:00 Test Item Value Reference Range Interpretation Comments UA Bili (test code = Negative *NA*(06/16/16 UA Bili) 10:49 PM) [facility] [id number] 03:49:00 Test Item Value Reference Range Interpretation Comments UA Ketones (test code = UA Negative mg/dL Ketones) [facility] [id number] 03:49:00 Test Item Value Reference Range Interpretation Comments UA Blood (test code = Negative (06/16/16 10:49 UA Blood) PM) [facility] [id number] 03:49:00 Test Item Value Reference Range Interpretation Comments UA Glucose (test code = UA Negative mg/dL Glucose) [facility] [id number] 03:49:00 Test Item Value Reference Range Interpretation Comments UA Turbidity (test code = Clear (06/16/16 UA Turbidity) 10:49 PM) [facility] [id number] 03:49:00 Test Item Value Reference Range Interpretation Comments UA pH (test code = UA pH) 6.0 1 5.0-8.0 [facility] [id number] 03:49:00 Test Item Value Reference Range Interpretation Comments UA Spec Grav (test code = UA Spec 1.025 1 Grav) [facility] [id number] 03:49:00 Test Item Value Reference Range Interpretation Comments UA Protein (test code = UA Negative mg/dL Protein) [facility] [id number] 03:49:00 Test Item Value Reference Range Interpretation Comments UA Color (test code = Yellow *NA*(06/16/16 UA Color) 10:49 PM) [facility] [id number] 03:49:00 Test Item Value Reference Range Interpretation Comments UA Leuk Est (test Negative (06/16/16 10:49 code = UA Leuk Est) PM) [facility] [id number] 03:49:00 Test Item Value Reference Range Interpretation Comments UA Nitrite (test code Negative (06/16/16 = UA Nitrite) 10:49 PM) [facility] [id number] 03:49:00 Test Item Value Reference Range Interpretation Comments UA Sq Epi (test code = None Seen (06/16/16 UA Sq Epi) 10:49 PM) [facility] [id number] 03:49:00 Test Item Value Reference Range Interpretation Comments UA WBC (test code = UA None Seen (06/16/16 WBC) 10:49 PM) [facility] [id number] 03:49:00 Test Item Value Reference Range Interpretation Comments UA Bacteria (test code = None Seen (06/16/16 UA Bacteria) 10:49 PM) [facility] [id number] 03:49:00 Test Item Value Reference Range Interpretation Comments UA RBC (test None Seen See_Comment [Automated mes vaishali] code = UA RBC) (06/16/16 10:49 The system which PM) generated this result transmitted ref erence range: <=2. The reference range was not used to int erpret this result as normal/abnormal . [facility] [id number] 03:49:00 Test Item Value Reference Range Interpretation Comments U Norma Scr (test code Negative *NA*(06/16/16 = U Norma Scr) 10:49 PM) [facility] [id number] 02:52:07 Test Item Value Reference Range Interpretation Comments Total CK (test code = Total CK) 209 12-191 [facility] SouthDistractifyCARDIAC [id number] 02:52:07 Test Item Value Reference Range Interpretation Comments Troponin-I (test code no gt See_Comment [Auto mated message] The = Troponin-I) system which g enerated this result transmit javi reference range : <=0.40. The reference r giulia was not used to interpr et this result as cyndi l/abnormal. [facility] SouthCellumenAC [id number] 02:52:07 Test Item Value Reference Range Interpretation Comments CK MB (test code = CK MB) 1.2 0.5-3.6 [facility] SouthDistractifyCARMeetings.ioAC [id number] 02:52:07 Test Item Value Reference Range Interpretation Comments CK MB Index (test 0.6 See_Comment [Automate d message] The code = CK MB Index) system w [facility] generated this result transmit javi reference range : <=2.5. The reference range was not used to interpr et this result as cyndi l/abnormal. [facility] [employer] [id number] 02:52:07 Test Item Value Reference Range Interpretation Comments eGFR (test code = eGFR) 149 [facility] SouthYoozonGWLZB0778-56-40 02:52:07 Test Item Value Reference Range Interpretation Comments Glucose Lvl (test code = Glucose Lvl) 93 70-99 [facility] SouthBasis Science [id number] 02:52:07 Test Item Value Reference Range Interpretation Comments BUN (test code = BUN) 11 7-22 [facility] SouthBasis Science [id number] 02:52:07 Test Item Value Reference Range Interpretation Comments Potassium Lvl (test code = Potassium 4.0 3.5-5.1 Lvl) [facility] SouthBasis Science [id number] 02:52:07 Test Item Value Reference Range Interpretation Comments Creatinine Lvl (test code = Creatinine 0.77 0.50-1.40 Lvl) [facility] [id number] 02:52:07 Test Item Value Reference Range Interpretation Comments Calcium Lvl (test code = Calcium Lvl) 9.0 8.5-10.5 [facility] [id number] 02:52:07 Test Item Value Reference Range Interpretation Comments Total Protein (test code = Total 7.9 6.4-8.4 Protein) [facility]2016-10-16 02:52:07 Test Item Value Reference Range Interpretation Comments Sodium Lvl (test code = Sodium Lvl) 141 135-145 [facility]2016-10-16 02:52:07 Test Item Value Reference Range Interpretation Comments ALT (test code = ALT) 37 See_Comment [Auto mated message] The system which ge nerated this result transmit javi reference range : <=65. The reference range was not used to interpr et this result as cyndi l/abnormal. [facility]2016-10-16 02:52:07 Test Item Value Reference Range Interpretation Comments AGAP (test code = AGAP) 14.0 10.0-20.0 [facility]2016-10-16 02:52:07 Test Item Value Reference Range Interpretation Comments Chloride Lvl (test code = Chloride Lvl) 106 95-109 [facility]2016-10-16 02:52:07 Test Item Value Reference Range Interpretation Comments CO2 (test code = CO2) 25 24-32 [facility]2016-10-16 02:52:07 Test Item Value Reference Range Interpretation Comments Albumin Lvl (test code = Albumin Lvl) 4.1 3.5-5.0 [facility] SouthBasis Science [id number] 02:52:07 Test Item Value Reference Range Interpretation Comments B/C Ratio (test code = B/C Ratio) 14 6-25 [facility]2016-10-16 02:52:07 Test Item Value Reference Range Interpretation Comments AST (test code = AST) 21 See_Comment [Auto mated message] The system which ge nerated this result transmit javi reference range : <=37. The reference range was not used to interpr et this result as cyndi l/abnormal. [facility] [id number] 02:52:07 Test Item Value Reference Range Interpretation Comments Alk Phos (test code = Alk Phos) 72 39-136 [facility]2016-10-16 02:52:07 Test Item Value Reference Range Interpretation Comments Bili Total (test code = Bili Total) 0.7 0.2-1.3 [facility]2016-10-16 02:52:07 Test Item Value Reference Range Interpretation Comments Globulin (test code = Globulin) 3.8 2.7-4.2 [facility]2016-10-16 02:52:07 Test Item Value Reference Range Interpretation Comments A/G Ratio (test code = A/G Ratio) 1.1 0.7-1.6 [facility] AreaKkhftzhXXCFRZLIGH8189-52-59 02:43:00 Test Item Value Reference Range Interpretation Comments MCHC (test code = MCHC) 34.1 32.0-36.0 [facility] AreaFjdbaqwSBCBXPFLFE3430-05-96 02:43:00 Test Item Value Reference Range Interpretation Comments MCH (test code = MCH) 27.8 pg 27.0-31.0 [facility] AreaHnltdeyLCKDCQFLAO1632-36-87 02:43:00 Test Item Value Reference Range Interpretation Comments RDW (test code = RDW) 13.5 11.5-14.5 [facility] AreaXvqgmlwHORIJQNPQL6829-47-86 02:43:00 Test Item Value Reference Range Interpretation Comments Platelet (test code = Platelet) 215 133-450 [facility] AreaRlpetlwNSMLIGOXFO9910-82-70 02:43:00 Test Item Value Reference Range Interpretation Comments WBC (test code = WBC) 9.5 3.7-10.4 [facility] AreaAqjzqccSNAUIASGWM2895-16-33 02:43:00 Test Item Value Reference Range Interpretation Comments MPV (test code = MPV) 9.1 7.4-10.4 [facility] AreaMbdhjqpMOJQTEHTIH8317-27-20 02:43:00 Test Item Value Reference Range Interpretation Comments Hct (test code = Hct) 44.5 42.0-54.0 [facility] AreaKyowzanCEZLCVMWOG5526-77-26 02:43:00 Test Item Value Reference Range Interpretation Comments MCV (test code = MCV) 81.5 80.0-94.0 [facility] AreaQxrhrvjOSEUKLZXYQ8609-60-31 02:43:00 Test Item Value Reference Range Interpretation Comments RBC (test code = RBC) 5.46 4.70-6.10 [facility] AreaFykjfwwSOPOVYEIQJ5661-34-48 02:43:00 Test Item Value Reference Range Interpretation Comments Hgb (test code = Hgb) 15.2 14.0-18.0 [facility] AreaPipkhwlBSPMGHDZAW9425-90-05 02:43:00 Test Item Value Reference Range Interpretation Comments RBC Morph (test code = Normal (06/16/16 9:43 RBC Morph) PM) [facility] AreaRciflbkQVTFRLXDZD9056-57-02 02:43:00 Test Item Value Reference Range Interpretation Comments Segs (test code = Segs) 51.1 45.0-75.0 [facility] AreaLienuojEDJCZRQOSU7773-76-05 02:43:00 Test Item Value Reference Range Interpretation Comments Monocytes (test code = Monocytes) 9.8 2.0-12.0 [facility] AreaShurtjjHGJLXTPPHG5102-54-12 02:43:00 Test Item Value Reference Range Interpretation Comments Segs-Bands # (test code = Segs-Bands #) 4.9 1.5-8.1 [facility] AreaKbazfbzMBYGRVSAEJ9409-66-49 02:43:00 Test Item Value Reference Range Interpretation Comments Eosinophils (test code = 5.4 See_Comment [A utomated message] The Eosinophils) system which ge nerated this result tra nsmitted reference range : <=4.0. The reference r giulia was not used to int erpret this result as normal/abnormal . [facility] AreaUnniaaeIFZVWJPXZY1274-41-02 02:43:00 Test Item Value Reference Range Interpretation Comments Basophils (test code = 1.7 See_Comment [Aut omated message] The Basophils) system which ge nerated this result tra nsmitted reference range : <=1.0. The reference r giulia was not used to int erpret this result as normal/abnormal . [facility] AreaEsznknbMDUNVDNGZE0768-92-60 02:43:00 Test Item Value Reference Range Interpretation Comments Lymphocytes (test code = Lymphocytes) 32.0 20.0-40.0 [facility] AreaHjedvnkQIJSHBEQPE8112-54-46 02:43:00 Test Item Value Reference Range Interpretation Comments Eosinophils # (test code 0.5 See_Comment [A utomated message] The = Eosinophils #) system whic h generated this result tra nsmitted reference range : <=0.5. The reference r giulia was not used to int erpret this result as normal/abnormal . [facility] AreaQbcgpcwDPNAGKVMZU3502-71-17 02:43:00 Test Item Value Reference Range Interpretation Comments Lymphocytes # (test code = Lymphocytes 3.0 1.0-5.5 #) [facility] AreaZdgbgjjVZCKDFARST9910-07-47 02:43:00 Test Item Value Reference Range Interpretation Comments Basophils # (test code 0.2 See_Comment [Aut omated message] The = Basophils #) system which generated this result tra nsmitted reference range : <=0.2. The reference r giulia was not used to int erpret this result as normal/abnormal . [facility] AreaIkniuzfLXMWEQEZLA5734-54-32 02:43:00 Test Item Value Reference Range Interpretation Comments Large Plt (test code Moderate *ABN*(06/16/16 = Large Plt) 9:43 PM) [facility] AreaDnzbnxsPMWDNZVGAA0227-49-76 02:43:00 Test Item Value Reference Range Interpretation Comments Monocytes # (test code 0.9 See_Comment [Aut omated message] The = Monocytes #) system which generated this result tra nsmitted reference range : <=0.8. The reference r giulia was not used to int erpret this result as normal/abnormal . [facility] ClubDrrbrpcJIWULFQVU6394-85-72 23:35:00 Test Item Value Reference Range Interpretation Comments Lipase Lvl (test code = Lipase Lvl) 114 73-393 N [facility] ClubYlrgxcbHRGAPBZMI7306-36-26 23:35:00 Test Item Value Reference Range Interpretation Comments Amylase Lvl (test code = Amylase Lvl) 46 25-115 N [facility] ClubAxkecuvZFFSREYQT3739-27-28 23:35:00 Test Item Value Reference Range Interpretation Comments Total Protein (test code = Total 8.7 6.4-8.4 H Protein) [facility] ClubJwlbvhnADXCZMOLL7764-61-80 23:35:00 Test Item Value Reference Range Interpretation Comments Bili Total (test code = Bili Total) 0.7 0.2-1.3 N [facility] ClubGpuwmssPQBUTNGQM3582-88-32 23:35:00 Test Item Value Reference Range Interpretation Comments AST (test code = AST) 22 See_Comment N [Auto mated message] The system which ge nerated this result transmit javi reference range : <=37. The reference range was not used to interpr et this result as cyndi l/abnormal. [facility] ClubTkvgtbeSRDYDUKGT4471-45-66 23:35:00 Test Item Value Reference Range Interpretation Comments Albumin Lvl (test code = Albumin Lvl) 4.5 3.5-5.0 N [facility] ClubGpmhuyeRXJSHPVSD4129-84-34 23:35:00 Test Item Value Reference Range Interpretation Comments ALT (test code = ALT) 50 See_Comment N [Auto mated message] The system which ge nerated this result transmit javi reference range : <=65. The reference range was not used to interpr et this result as cyndi l/abnormal. [facility] ClubJhtxpewNSQLFGSDV0675-77-29 23:35:00 Test Item Value Reference Range Interpretation Comments Alk Phos (test code = Alk Phos) 107 39-136 N [facility] ClubItatqkuDOUENLLDT0490-49-34 23:35:00 Test Item Value Reference Range Interpretation Comments Chloride Lvl (test code = Chloride Lvl) 104 95-109 N [facility] ClubShabrkxKSZVSADFD5189-36-87 23:35:00 Test Item Value Reference Range Interpretation Comments Potassium Lvl (test code = Potassium 4.3 3.5-5.1 N Lvl) [facility] ClubUeuvrnqIESFTCZXV6324-12-44 23:35:00 Test Item Value Reference Range Interpretation Comments Calcium Lvl (test code = Calcium Lvl) 9.7 8.5-10.5 N [facility] ClubGhuzteoLBQPFUZUP3298-18-80 23:35:00 Test Item Value Reference Range Interpretation Comments CO2 (test code = CO2) 28 24-32 N [facility] ClubXdmrdxsFHPRNJPDH9104-78-34 23:35:00 Test Item Value Reference Range Interpretation Comments Glucose Lvl (test code = Glucose Lvl) 92 70-99 N [facility] ClubNgnmlwkFIBVLUIFI1425-42-36 23:35:00 Test Item Value Reference Range Interpretation Comments BUN (test code = BUN) 12 7-22 N [facility] ClubMnmqlddRFKSHSAUG1638-03-77 23:35:00 Test Item Value Reference Range Interpretation Comments Creatinine Lvl (test code = Creatinine 0.9 0.5-1.4 N Lvl) [facility] ClubJjcfdpsYTXRDWUBT3035-62-32 23:35:00 Test Item Value Reference Range Interpretation Comments Sodium Lvl (test code = Sodium Lvl) 140 135-145 N [facility] ClubQnuqskwTRTQVDXIN8341-60-44 23:35:00 Test Item Value Reference Range Interpretation Comments Globulin (test code = Globulin) 4.2 2.0-4.0 H [facility] ClubPvbitvhMQIVOADVE0314-13-92 23:35:00 Test Item Value Reference Range Interpretation Comments A/G Ratio (test code = A/G Ratio) 1.1 0.7-1.6 N [facility] ClubMeapehxCFLEULVNJ8361-07-03 23:35:00 Test Item Value Reference Range Interpretation Comments B/C Ratio (test code = B/C Ratio) 13 6-25 N [facility] ClubMludugeSXKGNGTVB2064-92-40 23:35:00 Test Item Value Reference Range Interpretation Comments AGAP (test code = AGAP) 12.3 10.0-20.0 N [facility] AreaChbpybtPCCJTKYYIC8408-54-92 23:35:00 Test Item Value Reference Range Interpretation Comments Segs-Bands # (test code = Segs-Bands #) 4.7 1.5-8.1 N [facility] AreaOddjnxcCBZUBXQAJK1968-28-86 23:35:00 Test Item Value Reference Range Interpretation Comments Basophils # (test code 0.1 See_Comment N [Aut omated message] The = Basophils #) system which generated this result tra nsmitted reference range : <=0.2. The reference r giulia was not used to int erpret this result as normal/abnormal . [facility] AreaJvpsrzuYOZHCXYMWM7443-64-67 23:35:00 Test Item Value Reference Range Interpretation Comments Monocytes # (test code 0.8 See_Comment N [Aut omated message] The = Monocytes #) system which generated this result tra nsmitted reference range : <=0.8. The reference r giulia was not used to int erpret this result as normal/abnormal . [facility] AreaGjegtmfKRWDETYMJG3724-07-77 23:35:00 Test Item Value Reference Range Interpretation Comments Lymphocytes # (test code = Lymphocytes 2.6 1.0-5.5 N #) [facility] AreaCebpswsUHLQZYGDHL4657-80-96 23:35:00 Test Item Value Reference Range Interpretation Comments Eosinophils # (test code 0.3 See_Comment N [A utomated message] The = Eosinophils #) system whic h generated this result tra nsmitted reference range : <=0.5. The reference r giulia was not used to int erpret this result as normal/abnormal . [facility] AreaIhfxanrGXWRNAKUJE0389-16-38 23:35:00 Test Item Value Reference Range Interpretation Comments Eosinophils (test code = 4.0 See_Comment N [A utomated message] The Eosinophils) system which ge nerated this result tra nsmitted reference range : <=4.0. The reference r giulia was not used to int erpret this result as normal/abnormal . [facility] AreaQphbsssEQLYJRFKWC5874-85-96 23:35:00 Test Item Value Reference Range Interpretation Comments Basophils (test code = 0.6 See_Comment N [Aut omated message] The Basophils) system which ge nerated this result tra nsmitted reference range : <=1.0. The reference r giulia was not used to int erpret this result as normal/abnormal . [facility] AreaChfbxwcQEPADPSNKH5761-56-44 23:35:00 Test Item Value Reference Range Interpretation Comments Monocytes (test code = Monocytes) 9.9 2.0-12.0 N [place] 404872-06-16 23:35:00 Test Item Value Reference Range Interpretation Comments Segs (test code = Segs) 55.5 45.0-75.0 N [facility] AreaErhvfydTAZVRFKKZZ7525-83-59 23:35:00 Test Item Value Reference Range Interpretation Comments Lymphocytes (test code = Lymphocytes) 30.0 20.0-40.0 N [facility] AreaSbcliqeCVNBUJGWLN2204-99-21 23:35:00 Test Item Value Reference Range Interpretation Comments MPV (test code = MPV) 9.4 7.4-10.4 N [facility] AreaRbmwyppYBFWTPWYCG1888-86-47 23:35:00 Test Item Value Reference Range Interpretation Comments Hgb (test code = Hgb) 15.3 14.0-18.0 N [facility] AreaCysxpukWSUNDXGGHY8399-15-28 23:35:00 Test Item Value Reference Range Interpretation Comments RBC (test code = RBC) 5.41 4.70-6.10 N [facility] AreaImlyqhrUAKPCDJMGL4756-14-83 23:35:00 Test Item Value Reference Range Interpretation Comments WBC (test code = WBC) 8.5 3.7-10.4 N [facility] AreaWyevkesOERYWPZXGQ0474-78-31 23:35:00 Test Item Value Reference Range Interpretation Comments Platelet (test code = Platelet) 219 133-450 N [facility] AreaNoghzjiZFAUJUOVRS8995-97-57 23:35:00 Test Item Value Reference Range Interpretation Comments RDW (test code = RDW) 12.8 11.5-14.5 N [place] 404872-06-16 23:35:00 Test Item Value Reference Range Interpretation Comments Hct (test code = Hct) 45.2 42.0-54.0 N [facility] AreaMmgyegzYAJKHVIIXC3037-83-05 23:35:00 Test Item Value Reference Range Interpretation Comments MCH (test code = MCH) 28.2 pg 27.0-31.0 N [facility]WnuavjkPBXOEJYLIO0693-33-34 23:35:00 Test Item Value Reference Range Interpretation Comments MCV (test code = MCV) 83.7 80.0-94.0 N [facility] AreaVifoprqXSEZZZWQVA4024-68-04 23:35:00 Test Item Value Reference Range Interpretation Comments MCHC (test code = MCHC) 33.7 32.0-36.0 N [facility]SbhmngnSXMBCNCIBU2938-09-16 23:35:00 Test Item Value Reference Range Interpretation Comments UA Sq Epi (test code = Rare /LPF (02/16/2012 N UA Sq Epi) 18:35:00) [facility] SouthDeszjxbVVEOBKVZTS7286-19-14 23:35:00 Test Item Value Reference Range Interpretation Comments Micro? (test code = Performed (02/16/2012 N Micro?) 18:35:00) [facility] SouthTpedehuNYQUDAMLCP8962-24-13 23:35:00 Test Item Value Reference Range Interpretation Comments UA Bili (test code = Negative *NA*(02/16/2012 UA Bili) 18:35:00) [facility]SevavhpAPPTVUELQI7667-00-81 23:35:00 Test Item Value Reference Range Interpretation Comments UA Leuk Est (test Negative (02/16/2012 N code = UA Leuk Est) 18:35:00) [facility]ZmgujrmJHEAKHNHJX5337-09-78 23:35:00 Test Item Value Reference Range Interpretation Comments UA Nitrite (test code Negative (02/16/2012 N = UA Nitrite) 18:35:00) [facility]QfzdgnsWNBJCRZCCZ8129-15-73 23:35:00 Test Item Value Reference Range Interpretation Comments UA Urobilinogen (test code = UA 0.2 0.1-1.0 N Urobilinogen) [facility]FalgsdxKZRWDTPOHD7247-59-53 23:35:00 Test Item Value Reference Range Interpretation Comments UA Blood (test code = Negative (02/16/2012 N UA Blood) 18:35:00) [facility]KvqipcwOKUMPAEBQH9197-21-45 23:35:00 Test Item Value Reference Range Interpretation Comments UA Ketones (test code Negative mg/dL = UA Ketones) *NA*(02/16/2012 18:35:00) [facility]oLbvvfomIWWWRWRRSC7081-41-33 23:35:00 Test Item Value Reference Range Interpretation Comments UA Glucose (test code Negative mg/dL N = UA Glucose) (02/16/2012 18:35:00) [facility]ZmdcwxlYYUNKDOFBL8092-26-76 23:35:00 Test Item Value Reference Range Interpretation Comments UA Turbidity (test code = Clear (02/16/2012 N UA Turbidity) 18:35:00) [facility]NhtxehkTDBDUYSZJC3256-65-01 23:35:00 Test Item Value Reference Range Interpretation Comments UA Spec Grav (test code = UA Spec 1.025 1 N Grav) [facility] PasoIejhdhdLVECVDNDUJ8583-68-78 23:35:00 Test Item Value Reference Range Interpretation Comments UA Protein (test code Negative mg/dL N = UA Protein) (02/16/2012 18:35:00) [facility] PasoHwsqwyxMHLLCLJJDV6515-91-06 23:35:00 Test Item Value Reference Range Interpretation Comments UA pH (test code = UA pH) 6.0 1 5.0-8.0 N [facility] PasoAmwyhogJJSXCWHMMI3879-65-01 23:35:00 Test Item Value Reference Range Interpretation Comments UA Color (test code = Yellow *NA*(02/16/2012 UA Color) 18:35:00) [facility] ClubGfgywhqHIOGLSGIC5647-04-72 19:30:00 Test Item Value Reference Range Interpretation Comments Lipase Lvl (test code = Lipase Lvl) 115.0 73-393 N [facility] ClubZmbzsnkQZEEJQPBA6019-57-27 19:30:00 Test Item Value Reference Range Interpretation Comments AGAP (test code = AGAP) 13.7 10.0-20.0 N [facility] ClubZmzrvvvCIILYOYNL8503-92-93 19:30:00 Test Item Value Reference Range Interpretation Comments A/G Ratio (test code = A/G Ratio) 0.9 1 0.7-1.6 N [facility] ClubXrbhjxkGAKJIZPEN7101-52-26 19:30:00 Test Item Value Reference Range Interpretation Comments Globulin (test code = Globulin) 4.6 2.0-4.0 H [facility] ClubIyhqvwgVIYBEUFIH5835-98-06 19:30:00 Test Item Value Reference Range Interpretation Comments B/C Ratio (test code = B/C Ratio) 11.0 1 6-25 N [facility] ClubQfmnpszBYSXJATTR2556-60-35 19:30:00 Test Item Value Reference Range Interpretation Comments Bili Total (test code = Bili Total) 0.7 0.2-1.3 N [facility] ClubHvdwiigVXQXCJNFZ3995-57-79 19:30:00 Test Item Value Reference Range Interpretation Comments AST (test code = AST) 25.0 See_Comment N [Auto mated message] The system which ge nerated this result transmit javi reference range : <=37. The reference range was not used to interpr et this result as cyndi l/abnormal. [facility] ClubUvsbqjnZPBOJEENC5164-11-68 19:30:00 Test Item Value Reference Range Interpretation Comments ALT (test code = ALT) 57.0 See_Comment N [Auto mated message] The system which ge nerated this result transmit javi reference range : <=65. The reference range was not used to interpr et this result as cyndi l/abnormal. [facility] ClubHrwzhlgZFUEYCXMC3089-78-46 19:30:00 Test Item Value Reference Range Interpretation Comments Albumin Lvl (test code = Albumin Lvl) 4.3 3.5-5.0 N [facility] ClubOzxtcvnMIASEYUZF4265-48-24 19:30:00 Test Item Value Reference Range Interpretation Comments Alk Phos (test code = Alk Phos) 118.0 39-136 N [facility] ClubWmlrqafEOMSPLAZS2400-18-88 19:30:00 Test Item Value Reference Range Interpretation Comments CO2 (test code = CO2) 29.0 24-32 N [facility] ClubGryyhjnJENOOAUYX3681-44-05 19:30:00 Test Item Value Reference Range Interpretation Comments Total Protein (test code = Total 8.9 6.4-8.4 H Protein) [facility] ClubCqgtettCKCBOFBJO3548-55-50 19:30:00 Test Item Value Reference Range Interpretation Comments Calcium Lvl (test code = Calcium Lvl) 9.2 8.5-10.5 N [facility] ClubOixlqssFKEWFDATY9118-92-05 19:30:00 Test Item Value Reference Range Interpretation Comments Potassium Lvl (test code = Potassium 3.7 3.5-5.1 N Lvl) [facility] ClubQthmiwyDCPGRNTXR2829-80-55 19:30:00 Test Item Value Reference Range Interpretation Comments Chloride Lvl (test code = Chloride Lvl) 100.0 95-109 N [facility] ClubJohuqkrVKKHCGPVE1207-04-74 19:30:00 Test Item Value Reference Range Interpretation Comments BUN (test code = BUN) 8.0 7-22 N [facility] ClubQecxwijMXJKSZLKP7123-22-12 19:30:00 Test Item Value Reference Range Interpretation Comments Glucose Lvl (test code = Glucose Lvl) 79.0 [facility] ClubSlzbcbqMMZIXTPOY7722-08-80 19:30:00 Test Item Value Reference Range Interpretation Comments Sodium Lvl (test code = Sodium Lvl) 139.0 135-145 N [facility] ClubZetqwvrNXGYXUEGD9905-46-64 19:30:00 Test Item Value Reference Range Interpretation Comments Creatinine Lvl (test code = Creatinine 0.7 0.5-1.4 N Lvl) [facility] AreaUhfunosVTYXPOZFCI6432-89-97 19:30:00 Test Item Value Reference Range Interpretation Comments WBC (test code = WBC) 6.5 3.7-10.4 N [facility] AreaMeikcprZHGHCMXRGX5066-86-13 19:30:00 Test Item Value Reference Range Interpretation Comments Hct (test code = Hct) 45.1 42.0-54.0 N [facility] AreaGbygmsnXVDKVXTGBV9302-65-98 19:30:00 Test Item Value Reference Range Interpretation Comments Hgb (test code = Hgb) 15.6 14.0-18.0 N [facility] AreaSqekhtjVCLTUJWKBZ0778-50-22 19:30:00 Test Item Value Reference Range Interpretation Comments RBC (test code = RBC) 5.52 4.70-6.10 N [facility] AreaNkdlcalWIUOLMIHXO2238-03-20 19:30:00 Test Item Value Reference Range Interpretation Comments Platelet (test code = Platelet) 232.0 133-450 N [facility] AreaIqfnebsUSXYQJWOTU4249-68-52 19:30:00 Test Item Value Reference Range Interpretation Comments MPV (test code = MPV) 8.7 7.4-10.4 N [facility] AreaEzhxpmkRDDTNGNPWU4234-45-14 19:30:00 Test Item Value Reference Range Interpretation Comments MCHC (test code = MCHC) 34.5 32.0-36.0 N [facility] AreaNbeetgcMNYWOUABIX8902-76-45 19:30:00 Test Item Value Reference Range Interpretation Comments RDW (test code = RDW) 13.4 11.5-14.5 N [facility] AreaQssztkmLHGCYSWFIF1104-71-83 19:30:00 Test Item Value Reference Range Interpretation Comments MCV (test code = MCV) 81.7 80.0-94.0 N [facility] AreaZosgnqvCMLKEQWHEY2253-44-75 19:30:00 Test Item Value Reference Range Interpretation Comments MCH (test code = MCH) 28.2 pg 27.0-31.0 N [facility] AreaLwwytcuPFACYIVLPL5969-79-03 19:30:00 Test Item Value Reference Range Interpretation Comments Basophils # (test code 0.1 See_Comment N [Aut omated message] The = Basophils #) system which generated this result tra nsmitted reference range : <=0.2. The reference r giulia was not used to int erpret this result as normal/abnormal . [facility] AreaNkviudgGBOWGOAXFN3261-75-36 19:30:00 Test Item Value Reference Range Interpretation Comments Eosinophils # (test code 0.3 See_Comment N [A utomated message] The = Eosinophils #) system whic h generated this result tra nsmitted reference range : <=0.5. The reference r giulia was not used to int erpret this result as normal/abnormal . [facility] AreaUmfpanwDULFCBHLFQ8017-64-91 19:30:00 Test Item Value Reference Range Interpretation Comments Lymphocytes # (test code = Lymphocytes 1.6 1.0-5.5 N #) [facility] AreaQrwnljhBHEGKTBFZW3662-02-84 19:30:00 Test Item Value Reference Range Interpretation Comments Segs-Bands # (test code = Segs-Bands #) 3.5 1.5-8.1 N [facility] AreaUmflyysGERCUZXTZL8361-84-29 19:30:00 Test Item Value Reference Range Interpretation Comments Basophils (test code = 1.5 See_Comment H [Aut omated message] The Basophils) system which ge nerated this result tra nsmitted reference range : <=1.0. The reference r giulia was not used to int erpret this result as normal/abnormal . [facility] AreaZnlxmpuMIBTDZDFPA0245-56-44 19:30:00 Test Item Value Reference Range Interpretation Comments Eosinophils (test code = 4.4 See_Comment H [A utomated message] The Eosinophils) system which ge nerated this result tra nsmitted reference range : <=4.0. The reference r giulia was not used to int erpret this result as normal/abnormal . [facility] AreaBcyrikdUXKPPFIZYO3923-80-32 19:30:00 Test Item Value Reference Range Interpretation Comments Segs (test code = Segs) 54.0 45.0-75.0 N [facility] AreaAxyhgstYLAXUPUCMJ4650-76-36 19:30:00 Test Item Value Reference Range Interpretation Comments Monocytes # (test code 1.0 See_Comment H [Aut omated message] The = Monocytes #) system which generated this result tra nsmitted reference range : <=0.8. The reference r giulia was not used to int erpret this result as normal/abnormal . [facility] AreaTptglmtJFIARFEHGP9074-65-38 19:30:00 Test Item Value Reference Range Interpretation Comments Monocytes (test code = Monocytes) 15.9 2.0-12.0 H [facility] AreaDrweqeqWFQFYLTRKS7695-97-85 19:30:00 Test Item Value Reference Range Interpretation Comments Lymphocytes (test code = Lymphocytes) 24.2 20.0-40.0 N [facility]NhktqvnBHSIOGVJHS5260-46-65 19:30:00 Test Item Value Reference Range Interpretation Comments UA Sq Epi (test code = None Seen (07/17/2011 N UA Sq Epi) 13:30:00) ?? [facility] PasoPwegkwvPNHCIIVXCI1587-59-55 19:30:00 Test Item Value Reference Range Interpretation Comments UA RBC (test 0-2 /HPF See_Comment N [Automated mes vaishali] code = UA RBC) (07/17/2011 The system wh ich 13:30:00) ?? generated this result transmitted ref erence range: <=2. The reference range was not used to int erpret this result as normal/abnormal . [facility] PasoBoufilzFDAZZJYBQX6055-75-94 19:30:00 Test Item Value Reference Range Interpretation Comments UA Bacteria (test code = None Seen (07/17/2011 N UA Bacteria) 13:30:00) ?? [facility] PasoYpeiekmMQLQUHEFOK7104-90-97 19:30:00 Test Item Value Reference Range Interpretation Comments UA WBC (test code = UA None Seen (07/17/2011 N WBC) 13:30:00) ?? [facility]ZivzcncEVMCSXDRLW7318-26-71 19:30:00 Test Item Value Reference Range Interpretation Comments Micro? (test code = Performed (07/17/2011 N Micro?) 13:30:00) ?? [facility]NklgsevSUHTJODNEP0537-54-51 19:30:00 Test Item Value Reference Range Interpretation Comments UA Leuk Est (test Negative (07/17/2011 N code = UA Leuk Est) 13:30:00) ?? [facility] SouthCjuunctPKEUUYPIOC0759-31-92 19:30:00 Test Item Value Reference Range Interpretation Comments UA Nitrite (test code Negative (07/17/2011 N = UA Nitrite) 13:30:00) ?? [facility] PasoMogkfwqITTPMCTJWC1988-89-95 19:30:00 Test Item Value Reference Range Interpretation Comments UA Urobilinogen (test code = UA 0.2 0.1-1.0 N Urobilinogen) [facility] PasoJlsgtluGSMDQGTUWZ4236-67-53 19:30:00 Test Item Value Reference Range Interpretation Comments UA Blood (test code = Negative (07/17/2011 N UA Blood) 13:30:00) ?? [facility] PasoNxcnonpPHQGLYFSQP9886-34-00 19:30:00 Test Item Value Reference Range Interpretation Comments UA Ketones (test code Negative mg/dL = UA Ketones) *NA*(07/17/2011 13:30:00) ?? [facility] PasoDlhmdssTJCFKGUSKX3444-92-20 19:30:00 Test Item Value Reference Range Interpretation Comments UA Bili (test code = Negative *NA*(07/17/2011 UA Bili) 13:30:00) ?? [facility] PasoJqrcsnePJSNIFIFJO5657-04-58 19:30:00 Test Item Value Reference Range Interpretation Comments UA Glucose (test code Negative mg/dL N = UA Glucose) (07/17/2011 13:30:00) ?? [facility] PasoLwcgixqGPZRWRRAEV7431-96-03 19:30:00 Test Item Value Reference Range Interpretation Comments UA Protein (test code Negative mg/dL N = UA Protein) (07/17/2011 13:30:00) ?? [facility] PasoPficoivBNRPQNZBRZ3012-07-51 19:30:00 Test Item Value Reference Range Interpretation Comments UA pH (test code = UA pH) 6.0 1 5.0-8.0 N [facility] PasoSbykxrlKIPTVZCKEE8498-93-91 19:30:00 Test Item Value Reference Range Interpretation Comments UA Spec Grav (test code = UA Spec 1.025 1 N Grav) [facility]arvszCQZSUDEIFD3108-14-61 19:30:00 Test Item Value Reference Range Interpretation Comments UA Turbidity (test code = Clear (07/17/2011 N UA Turbidity) 13:30:00) ?? [facility]QwrcrebNNANUVKTZN5757-48-86 19:30:00 Test Item Value Reference Range Interpretation Comments UA Color (test code = Yellow *NA*(07/17/2011 UA Color) 13:30:00) ?? [facility] Notes Date/Time Note Provider Source 2020-05-25 22:12:00 [id number]:12:00 [facility] ([facility])EMERGENCY PROVIDER REPORTREPORT#:[id number] REPORT STATUS: SignedDATE:05/25/20 TIME: 2211 PATIENT: KATIE DEAN UNIT #: [id number]#: [id number] ROOM: BED:AGE: 24 SEX: M PCP PHYS: Suzy Farfan MDSERVICE AUTHOR: Ric Corbin DO * ALL edits or amendments must be made on the electronic/computer document * HPI-General Illness Free Text HPI NotesFree Text HPI NotesChief complaint lower abdominal pain onset 1 day ago not sudden onset rapidly worsening symptoms nonradiating at its worst the symptoms are 10 out of 10 currently the symptoms are 10 out of 10, Nothing makes better nothing makes worse, constant dull nonradiating GeneralInitial Greet Date/Time 05/25/202207 PresentationChief Complaint Abdominal painAssociated withDenies: Congestion, Cough, Diaphoresis, Difficulty breathing, Difficulty swallowing. Associated Other Pt denies other symptoms Review of Systems ROS StatementsAll systems rev neg except as marked.Complete sys re v neg except as marked. Review of SystemsConstitutionalDenies: Chills, Fatigue, Fever, Lethargy, Malaise, Recent wt loss, Weakness - generalized. Past Medical History - AdultStated Complaint LOWER ABDOMINAL PAINAllergiesCoded Allergies:No Known Allergies (08/09/18) Home MedicationsReported Medications[Free Text Medication] Albuterol (Proventil Hfa 90 Mcg/Act) 8.5 GM BID Famotidine (Pepcid) 20 MG PO BID Famotidine (Pepcid) 20 MG PO BID #20 Metoprolol Succ Xl (Toprol Xl) 25 MG PO DAILY Metoprolol Succ Xl (Toprol Xl) 25 MG PO DAILY #30 Ref 3Prednisone 10 MG PO SPECIAL INST Prednisone 10 MG PO SPECIAL INST #12 Pt reports no significant: Past surgical history, Family history, Social historyPast Medical History:Reports: Asthma, Hypertension. Smoking status for patients 13 years old or older: Unknown,if ever smokedOther Social History Primary family support, Good social support Physical Exam Vital SignsVital SignsFirst Documented: Result Date Time Temp 36.8 05/25 2205 Pulse Ox 96 05/25 2208 B/P 152/103 05/25 2208 B/P Mean 119.0 05/25 2208 Pulse 107 05/25 2208 Resp 05/25 O2 Delivery Room air 05/25 2300 Last Documented: Result Date Time Pulse Ox 99 05/26 9 B/P 140/86 05/26 9 B/ P Mean 104 05/26 9 O2 Delivery Room air 05/26 9 Pulse 92 05/26 9 Resp 18 05/26 9 Tem p 36.8 05/25 2205 Review of Vital Signs Reviewed, Vital signs abnormal Physical ExamGeneral/Const General/Const Awake, Alert Distress/Hydration Distress mild, Dehydration mild. MS Head Head NormocephalicEyes Eyes PERRLEars/Nose/Throat Mouth Mucous membranes dry. Negative: Drooling, Pooling of secretions, Hypersalivation, Muffled voice, Angioedema present, Lip swelling present, Foreign body present, Mass present, Palatal lesion present, Pharyngeal ulcers, Stomatitis present, Tongue abnormal. Pharynx/Tonsils/Uvula Negative: Pharyngeal erythema, Tonsillar erythem a R, Tonsillar erythema L, Tonsillar exudate R, Tonsillar exudate L, Tonsillar swelling R, Tonsillar swelling L, Peritonsil abscess R, Peritonsil abscess L, Trismus present, Epiglotti s enlarged, Epiglottis erythematous, Uvula deviate d R, Uvula deviated L, Uvula edematous, Uvula enlarged, Uvula erythematous. MS Neck Neck Supple, No meningismus, Full range of motion, No swelling, Non-tender, No massesResp/Chest Respiratory/Chest Breath sounds NL, Breath sound s = bilat, No respiratory distress, No rales, No rhonchi, No wheezingCardiovascular Heart Rate/Rhythm Tachycardia. Negative: Bradycardia, Irregular rhythm, Irreg irregular rhythm. Heart Sounds/Murmur Negative: Murmur present, Systolic murmur present, Diastolic murmur present, Murmur location, Murmur radiation, Murmur shape, Murmur timing, Murmur quality, Heart sounds diminished, Click present, Gallop present, Rub present. Abdomen/GI Abdomen/GI Atraumatic, Soft Tenderness/Guarding/Rebound Tender RLQ, Tender LLQ. Organomegaly/Mass/Hernia Negative: Hepatomegaly, Splenomegaly, Pulsatile mass, Aortic bruit, Mass present, Hernia inguinal R, Hernia inguinal L, Hernia umbilical, Hernia ventral,Hernia is reducible, Hernia not reducible, Hernia is incarcerated, Hernia is strangulated, Hernia is tender, Hernia is erythematous. MS Back Back Inspection NL, Painless range of motion, Non-tender, No CVA tendernessLymphatic Lymphatic No gross adenopathyMS Upper Extrem Upper Extremity/MS Inspection NL, No swelling, Non-tender, No erythema, No deformity, Neurologic intact, Vascular intact, No clubbing/cyanosisMS Wrist/Hand Wrist/Hand Inspection NL, No swelling , No erythema, Non-tender, No deformity,Neurologic intact, Vascular intact, No clubbing/cyanosisMS Lower Extrem Lower Ext/Pelvis/MS Inspection NL, No swelling, Non-tender, No erythema, No deformity, Neurologic intact, Vascular intact, N o edemaMS Ankle/Foot Ankle/Foot Inspection NL, No swelling, No erythema, Non-tender, No deformity,Neurologic intact, Vascular intact, No edemaSkin Skin Color NL, Warm, Dry, Turgor NLNeurologic Neurologic Oriented X3, Speech NL, No motor deficits, No sensory deficitsPsychiatri c Psychiatric Affect NL, Mood NL, Thought content NL Interpretation Diagnostics Lab Results InterpretationConsiderations Independ review imaging, Reviewed prior recordsResultsLaboratory Tests 05/25/20 2019:[Embedded Image Not Available]Laboratory Tests: 05/25 2019 Chemistr y Sodium (135 - 145 mmol/L) 136 Potassium (3.6 - 5.0 mmol/L) 4.0 Chloride (101 - 111 mmol/L) 103 Carbon Dioxide (21 - 31 mmol/L) 24 BUN (6 - 20 mg/dl) 11 Creatinine (0.64 - 1.27 mg/dL) 0.86 Glomerular Filtr Rate (>60) >=60 max estimate Glucose (70 - 100 mg/dl) 118 H Calcium (8.5 - 10.5 mg/dL) 9.6 Total Bilirubin (0.2 - 1.3 mg/dL) 0.90 Direct Bilirubin (0.00 - 0.20 mg/dL) 0.2 AST (10 - 42 U/L) 34 ALT (10 - 60 U/L) 50 Total Alk Phosphatase (42 - 121 U/L) 64 Total Protein (6.7 - 8.2 g/dL) 7.7 Albumin (3.2 - 5.5 g/dL) 4.3 Lipase (22 - 51 IU/L) 20 L Hematology WBC (3.2 - 11.5 x10 3/uL) 13.2 H RBC (4.20 - 5.7 0 x10(6)/m) 5.89 H Hgb (12.9 - 17.3 g/dL) 16.1 Hct (38.7 - 51.0 %) 48.1 MCV (80 - 100 fL) 82 MCH (26.7 - 33.3 pg) 27.3 MCHC (30.0 - 34.0 g/dL) 33.5 RDW (11.3 - 14.5 %) 13.2 Plt Count (130 - 408 x10 3/uL) 273 MPV (8.6 - 12.6 fL) 10.8 Total Counted (#CELLS) 100 Seg Neutrophils % (43 - 65 %) 67 H Lymphocytes % (Manual) (20.5 - 45.5 %) 26 Monocytes % (Manual) (5.5 - 11.7 %) 4 L Eosinophils % (Manual) (0.9 - 2.9 %) 1 Abs Neuts (Manual) (1.6 - 7.2 10 3/uL) 8.84 H Abs Band Neuts (Man) (0.00 - 0.70 10 3/uL) 0.00 Abs Lymph s (Manual) (1.1 - 2.7 10 3/uL) 3.4 H Abs Atypical Lymphs Man (0.00 - 0.00 10 3/uL) 0.00 Abs Monocytes (Manual) (0.3 - 0.8 10 3/uL) 0.52 Absolute Eos (Manual) (0.00 - 0.50 10 3/uL) 0.13 Abs Basophils (Manual) (0.00 - 0.1 10 3/uL) 0.00 Metamyelocytes (0 - 0 %) 1 H Abs Metamyelocytes (Man) (0.00 - 0.00 10 3/uL) 0.13 H Myelocytes (0 - 0 %) 1 H Abs Myelocytes (Man) (0.00 - 0.00 10 3/uL) 0.13 H Abs Promyelocytes (Man) (0.00 - 0.0 0 10 3/uL) 0.00 Abs Blast Cells (Man) (0.00 - 0.00 10 3/uL) 0.00 Other Cells # (0.00 - 0.00 10 3/uL ) 0.00 Platelet Estimate (ADEQUATE) ADEQUATE Plt Morphology Comment (NORMAL) LARGE PLATELETS SEEN GIANT PLATELETS SEEN Morphology Comment (NORMAL) Normal 05/25 2322 Urines Urine Color (YELLOW) YELLOW Urine Appearance (CLEAR) Clear Urine pH (5.0 - 9.0) 5.0 Ur Specific [place] (1.001 - 1.030) 1.027 Urine Protein (NEGATIVE) NEGATIVE Urine Glucose (UA) (NEGATIVE) NEGATIVE Urine Ketones (NEGATIVE) NEGATIVE Urine Blood (NEGATIVE) NEGATIVE Urine Nitrite (NEGATIVE) NEGATIVE Urine Bilirubin (NEGATIVE) NEGATIVE Urine Urobilinogen (<=1.0) NEGATIVE Ur Leukocyte Esterase (NEGATIVE) NEGATIVE Urine RBC (0 - 5 /HPF) 0-5 Urine WBC (0 - 5 /HPF) 0-5 Ur Epithelial Cells (NONE - FEW /LPF) RARE Urine Bacteria (NONE SEEN /HPF) None Urine Mucus (NONE SEEN /LPF) 2+ Urine Ascorbic Acid POSITIVE A Recent Impressions:RADIOLOGY - XR ABDOMEN 1V 05/25 2230 Report Impression - Status: SIGNED Entered: 05/25/20202244 IMPRESSION: 1. No acute radiographic abnormality seen. Impression By: [email or web address] - Shelby Nowak,MDRADIOLOGY - XR CHEST 1 V 05/25 2230 Report Impression - Status: SIGNED Entered: 05/25/20202246 IMPRESSION: Negative chest radiograph. Impression By: [email or web address] - Inderjit Estrella,[facility] [place] ABD PELVIS W/CONT 09/23 2330 Report Impression - Status: SIGNED Entered: 05/25/2020 2359 IMPRESSION: Negative CT of the abdomen and pelvis. DLP: 1786.25 mGy-cmIV Contrast: [address] dose optimization is achieved for this examination by the use of aCT protocol in accordance with ACR practice standards and adherence tomanufacturer's recommendations with automated exposure control. Impression By: [email or web address] - Inderjit Estrella MD Lab Imaging StatementLaboratory radiographic studies reviewe d and considered in the medical decision-making. Re-Evaluation MDM Re-Evaluation/Progress #1Time of Re-Eval 0005Re-Eval Status ImprovedEval Following Treatment Pt. feels better, Condition improved ED CourseMedication(s) OrderedMedication(s) Ordered:Central Nervous System Agents Sig/Grant Start time Last Medication Dose Route Stop Time Status Admin Ibuprofen 600 MG ONCE PRN 05/26 0015 AC PO 06/25 0016 Morphine Sulfate 2 MG X1ED STA 05/250 DC 05/25 IV 05/25 2321 232 Acetaminophen 650 MG X1ED STA 05/25 2217 DC 05/25 PO 05/25 2218 2221 Diagnostic Agents Sig/Grant Start time Last Medication Dose Route Stop Time Status Admin Iopamidol 0 .STK-MED ONE 05/25 2319 DC 05/25 IV 2336 Electrolytic, Caloric, And Puneet Sig/Grant Star t time Last Medication Dose Route Stop Time Status Admin Sodium Chloride 1,000 ML X1ED STA 05/25 2217 DC 05/25 IV 05/25 2218 2222 Gastrointestinal Drugs Sig/Grant Start time Last Medication Dose Route Stop Time Status Admin Ondansetron Base 4 MG ONCE PRN 05/25 2230 AC 05/25 SL 06/24 2231 222 Patient Discharge Departure Vital Signs/ConditionVital SignsFirst Documented: Result Date Time Temp 36.8 05/25 220 5 Pulse Ox 96 05/25 2208 B/P 152/103 05/25 2208 B/ P Mean 119.0 05/25 2208 Pulse 107 05/25 2208 Resp 18 05/25 2208 O2 Delivery Room air 05/25 2300 Last Documented: Result Date Time Pulse Ox 99 05/269 B/P 140/86 05/26 9 B/P Mean 104 05/26 9 O2 Delivery Room air 05/26 9 Puls e 92 05/26 9 Resp 18 05/26 9 Temp 36.8 05/25 2205 All vital signs available at the time of this entry have been reviewed. Condition Improved, Stable Clinical ImpressionClinical ImpressionPrimary Impression: Lower abdominal painSecondary Impressions: Dehydration, LeukocytosisTime of Impression 0006 Disposition DecisionDischarge )( Discharged to Home Yes )( Time 0006 )( Date 05/26/20 Discharge/Care PlanPrescriptionsNAPROSYN at 0423RPT #:[id number] OF REPORTEDEmergency department [id number]:12:00N.[id number] a ilable for patient rhonXRRTVVODNKYWGW1042-68-24Q40:23:28
[2023-07-31 13:11] LABS: SARS-CoV-2 Antigen Rapid Res Positive (Negative)
--- NOTE | 2023-07-31 13:14 | ER ---
Nurse's Notes [facility] Name: Theo Dean Age: 28 yrs Sex: Male : 1995 Arrival Date: 07/31/2023 Time: 12:27 Bed IW4 Private MD: Diagnosis: SARS-associated coronavirus as the cause of diseases classified elsewhere Presentation: 07/31 12:33 Chief complaint: Patient states: "my girlfriend just tested positive for covid and aa5 wants me to get tested, I just have a stuffy nose". Coronavirus screen: congestion. Ebola Screen: Patient denies travel to an Ebola-affected area in the 21 days before illness onset. Initial Sepsis Screen: Does the patient meet any 2 criteria? No. Patient's initial sepsis screen is negative. Does the patient have a suspected source of infection? No. Patient's initial sepsis screen is negative. Risk Assessment: Do you want to hurt yourself or someone else? Patient reports no desire to harm self or others. Onset of symptoms was July 31, 2023. 12:33 Method Of Arrival: Ambulatory aa5 12:33 Acuity: FRANCO 4 aa5 Historical: - Allergies: 12:34 No Known Allergies; aa5 - PMHx: 12:34 Asthma; Asthma; diabetes mellitus; Hypertensive disorder; aa5 - PSHx: 12:34 Appendectomy; aa5 - Immunization history:: Adult Immunizations unknown. - Social history:: Smoking status: Patient denies any tobacco usage or history of. Screenin:18 [facility] ED Fall Risk Assessment (Adult) Score/Fall Risk Level 0 - 2 = Low Risk aa5 Oriented to surroundings, Maintained a safe environment, Educated pt \\T\\ family on fall prevention, incl call for assistance when getting out of bed, Hourly rounding (assess needs \\T\\ fall precautionary measures) done. Abuse screen: Denies threats or abuse. Nutritional screening: No deficits noted. Tuberculosis screening: No symptoms or risk factors identified. Assessment: 13:17 General: Appears in no apparent distress. Behavior is calm, cooperative, appropriate aa5 for age. Pain: Denies pain. EENT: Reports nasal congestion. Vital Signs: 12:33 BP 141 / 98; Pulse 106; Resp 18 S; Temp 98(TE); Pulse Ox 99% on R/A; Weight 102.06 kg aa5 (R); Height 5 ft. 6 in. (R); 12:33 Body Mass Index 36.32 (102.06 kg, 167.64 cm) aa5 ED Course: 12:29 Patient arrived in ED. mg5 12:34 Triage completed. aa5 12:34 Arm band placed on. aa5 12:35 Adina Pino FNP-C is [facility]. kb 12:35 Chetan Mccord MD is Attending Physician. kb 13:18 Patient has correct armband on for positive identification. Bed in low position. ll1 Provided Education on: n/a. 13:18 No provider procedures requiring assistance completed. Patient did not have IV access aa5 during this emergency room visit. Administered Medications: No medications were administered Medication: 13:18 VIS not applicable for this client. ll1 Outcome: 13:13 Discharge ordered by . kb 13:18 Discharged to home ambulatory, ll1 13:18 Condition: stable 13:18 Discharge instructions given to patient, Instructed on discharge instructions, follow up and referral plans. Demonstrated understanding of instructions, follow-up care, 13:18 Patient left the ED. ll1 Signatures: Adina Pino FNP-C FNP-Ckb Calderon, Audri, RN RN aa5 Arron Corey RN RN 1 Melisa Short [facility] [place]
--- NOTE | 2023-07-31 13:14 | EDPHYS ---
Physician Documentation [facility] Name: Theo Dean Age: 28 yrs Sex: Male : 1995 Arrival Date: 07/31/2023 Time: 12:27 Bed IW4 Private MD: ED Physician Chetan Mccord HPI: 07/31 13:12 This 28 yrs old Black Male presents to ER via Ambulatory with complaints of Covid Test. kb 13:12 Patient is a 28-year-old male who presents for nasal congestion that started yesterday. kb States girlfriend tested positive for COVID just now.. Historical: - Allergies: 12:34 No Known Allergies; aa5 - PMHx: 12:34 Asthma; Asthma; diabetes mellitus; Hypertensive disorder; aa5 - PSHx: 12:34 Appendectomy; aa5 - Immunization history:: Adult Immunizations unknown. - Social history:: Smoking status: Patient denies any tobacco usage or history of. ROS: 13:12 Constitutional: Negative for fever, chills, and weight loss, kb 13:12 ENT: Positive for sinus congestion, 13:12 All other systems are negative, Exam: 13:12 Constitutional: This is a well developed, well nourished patient who is awake, alert, kb and in no acute distress. Head/Face: Normocephalic, atraumatic. ENT: Moist Mucous membranes Cardiovascular: Regular rate Respiratory: Respirations even and unlabored. No increased work of breathing. Talking in full sentences Skin: Warm, dry with normal turgor. Normal color. MS/ Extremity: Pulses equal, no cyanosis. Neurovascular intact. Full, normal range of motion. Neuro: Awake and alert, GCS 15, oriented to person, place, time, and situation. Moves all extremities. Normal gait. Vital Signs: 12:33 BP 141 / 98; Pulse 106; Resp 18 S; Temp 98(TE); Pulse Ox 99% on R/A; Weight 102.06 kg aa5 (R); Height 5 ft. 6 in. (R); 12:33 Body Mass Index 36.32 (102.06 kg, 167.64 cm) aa5 MDM: 12:35 Patient medically screened. kb 13:12 Differential diagnosis: covid, flu, uri. Data reviewed: vital signs, nurses notes. kb Counseling: I had a detailed discussion with the patient and/or guardian regarding the historical points, exam findings, and any diagnostic results supporting the discharge/admit diagnosis, lab results, the need for outpatient follow up, a family practitioner, to return to the emergency department if symptoms worsen or persist or if there are any questions or concerns that arise at home. 07/31 12:34 Order name: SARS RAPID; Complete Time: 13:12 aa5 Administered Medications: No medications were administered Disposition Summary: 07/31/23 13:13 Discharge Ordered Notes: Location: Home kb Condition: Stable kb Diagnosis - SARS-associated coronavirus as the cause of diseases classified elsewhere kb Followup: kb - With: Emergency Department - When: As needed - Reason: Worsening of condition Followup: kb - With: Private Physician - When: 2 - 3 days - Reason: Recheck today's complaints, Continuance of care, Re-evaluation by your physician Discharge Instructions: - Discharge Summary Sheet kb - COVID-19 kb Forms: - Medication Reconciliation Form kb - Thank You Letter kb - Antibiotic Education kb - Prescription Opioid Use kb - Patient Portal Instructions kb - Leadership Thank You Letter kb Signatures: Dispatcher [employer] Adina Zimmerman, MEMBERSHIP ADVISOR-C MEMBERSHIP ADVISOR-Rakel Mancera, RN RN aa5
[2023-07-31 13:23] VITALS: BP 141/98; TEMP 98; O2SAT 99
== END 2023-07-31 13:18 | disposition home or self-care (01) ==
LOC: ER 12:27
DX: U07.1 COVID-19 (principal)
CPT/HCPCS: 36415; 87811; 99282

== ENCOUNTER 2024-10-01 18:42 | Emergency (ER) | payer SELFPAY ==
[2024-10-01 19:57] LABS: Absolute Basophils 0.1 K/uL (0-0.5); Absolute Eosinophils 0.1 K/uL (0-0.5); Absolute Lymphocytes (CBC) 1.8 K/uL (0.7-4.9); Absolute Monocytes 0.6 K/uL (0.1-1.3); Absolute Neutrophil 6.2 K/uL (1.8-8.0); Basophils % 0.9 % (0-1.3); Eosinophils % 0.9 % (0-4.4); Hematocrit 44.4 % (39.6-49.0); MCH 28.9 pg (27.0-35.0); MCHC 33.9 g/dL (32.0-36.0); MCV 85.2 fL (80-100); MPV 8.8 fL (7.6-11.3); Monocytes % 7.2 % (3.3-12.3); Nucleated Red Blood Cells % 0.1 % (0-0); Platelets 234 thou/uL (152-406); RBC Red Blood Cell Count 5.21 M/uL (4.33-5.43); Red Cell Distribution Width 13.7 % (12.1-15.2)
[2024-10-01 20:17] LABS: Albumin 3.5 g/dL (3.4-5.0); Anion Gap 12.4 mEq/L (5.0-15.0); Bilirubin Direct 0.2 mg/dL (0-0.2); Bilirubin Indirect, Calculated 0.4 mg/dL (0.2-0.8); Bilirubin Total 0.6 mg/dL (0.2-1.0); Globulin 3.5 g/dL (2.3-3.5); Magnesium 2.2 mg/dL (1.6-2.4); Potassium 3.4 mEq/L (3.5-5.1); Troponin High Sensitivity 3.1 pg/mL (<58.9)
--- NOTE | 2024-10-01 20:26 | EDPHYS ---
Physician Documentation [facility] Name: Theo Dean Age: 29 yrs Sex: Male : 1995 Arrival Date: 10/01/2024 Time: 18:42 Bed 17 Private MD: ED Physician Gagandeep Coffey HPI: 10/01 20:14 This 29 yrs old Black Male presents to ER via Unassigned with complaints of rt Palpitations. 20:14 Patient presents to the ED with palpitations after eating a THC gummy. Reports feeling rt fuzzy. States that the symptoms have mildly improved. Denies other acute complaints at this time, symptoms are moderate in severity, no other aggravating or alleviating factors.. Historical: - Allergies: 20:16 No Known Allergies; ha1 - PMHx: 20:16 Asthma; diabetes mellitus; Hypertensive disorder; ha1 - PSHx: 20:16 Appendectomy; ha1 - Immunization history:: Adult Immunizations up to date. - Infectious Disease History:: Denies. - Family history:: not pertinent. - Social history:: Smoking status: Patient denies any tobacco usage or history of. ROS: 20:14 Constitutional: Negative for fever, chills, and weight loss, Respiratory: Negative for rt shortness of breath, cough, wheezing, and pleuritic chest pain, Abdomen/GI: Negative for abdominal pain, nausea, vomiting, diarrhea, and constipation, MS/Extremity: Negative for injury and deformity, Skin: Negative for injury, rash, and discoloration, Neuro: Negative for headache, weakness, numbness, tingling, and seizure, 20:14 Cardiovascular: Positive for palpitations, Negative for chest pain, Exam: 20:14 Constitutional: This is a well developed, well nourished patient who is awake, alert, rt and in no acute distress. Head/Face: Normocephalic, atraumatic. Chest/axilla: Normal chest wall appearance and motion. Nontender with no deformity. No lesions are appreciated. Cardiovascular: Regular rate and rhythm with a normal S1 and S2. No gallops, murmurs, or rubs. Normal PMI, no JVD. No pulse deficits. Respiratory: Lungs have equal breath sounds bilaterally, clear to auscultation and percussion. No rales, rhonchi or wheezes noted. No increased work of breathing, no retractions or nasal flaring. Abdomen/GI: Soft, non-tender, with normal bowel sounds. No distension or tympany. No guarding or rebound. No evidence of tenderness throughout. Skin: Warm, dry with normal turgor. Normal color with no rashes, no lesions, and no evidence of cellulitis. MS/ Extremity: Pulses equal, no cyanosis. Neurovascular intact. Full, normal range of motion. Neuro: Awake and alert, GCS 15, oriented to person, place, time, and situation. Cranial nerves II-XII grossly intact. Motor strength 5/5 in all extremities. Sensory grossly intact. Cerebellar exam normal. Normal gait. 20:14 ECG was reviewed by the Attending Physician. Vital Signs: 19:00 BP 150 / 99; Pulse 107; Resp 20 S; Pulse Ox 100% on R/A; ha1 19:00 Temp 98.1(O); Weight 100.24 kg; Height 5 ft. 8 in. ; ha1 20:03 BP 133 / 89; Pulse 103; Resp 17; Temp 98.3(O); Pulse Ox 96% on R/A; sa1 20:30 BP 141 / 83; Pulse 102; Resp 20 S; Pulse Ox 100% on R/A; ha1 19:00 Body Mass Index 33.60 (100.24 kg, 172.72 cm) ha1 MDM: 19:04 Medical Screening Exam initiated rt 20:26 Differential diagnosis: Dysrhythmia, cannabinoid ingestion, rhabdomyolysis. Data rt reviewed: vital signs, nurses notes, lab test result(s), EKG. I considered the following discharge prescriptions or medication management in the emergency department Medications were administered in the Emergency Department. See MAR. Counseling: I had a detailed discussion with the patient and/or guardian regarding the historical points, exam findings, and any diagnostic results supporting the discharge/admit diagnosis, lab results, the need for outpatient follow up. Response to treatment: the patient's symptoms have markedly improved after treatment. 10/01 19:08 Order name: Basic Metabolic Panel; Complete Time: 20:21 rt 10/01 19:08 Order name: CBC with Diff; Complete Time: : rt 10/01 19:08 Order name: LFT's; Complete Time: : rt 10/01 19:08 Order name: Magnesium; Complete Time: 20: rt 10/01 19:08 Order name: Troponin HS; Complete Time: 20: rt 10/01 19:08 Order name: CPK; Complete Time: : rt 10/01 19:08 Order name: EKG; Complete Time: 19: rt 10/01 19:08 Order name: Cardiac monitoring; Complete Time: 19:35 rt 10/01 19:08 Order name: EKG - Nurse/Tech; Complete Time: :43 rt 10/01 19:08 Order name: IV Saline Lock; Complete Time: :35 rt 10/01 19:08 Order name: Labs collected and sent; Complete Time: : rt 10/01 19:08 Order name: O2 Per Protocol; Complete Time: rt 10/01 19:08 Order name: O2 Sat Monitoring; Complete Time: : rt EC:14 Rate is 108 beats/min. Rhythm is regular, Sinus tachycardia with No ectopy. QRS [place] is rt Normal. [place] interval is normal. QRS interval is normal. QT interval is normal. No Q waves. T waves are Normal. No ST changes noted. Interpreted by me. Administered Medications: 19:34 Drug: NS 0.9% IV 1000 ml IV at 1 bolus Per protocol; to be given as a bolus over 60 ha1 minutes Route: IV; Rate: 1 bolus; Site: right forearm; 20:55 Follow up: Response: No adverse reaction; IV Status: Completed infusion; IV Intake: ha1 1000ml Disposition Summary: 10/01/24 20:26 Discharge Ordered Notes: Location: Home rt Problem: new rt Symptoms: have improved rt Condition: Stable rt Diagnosis - Adverse effect of edible THC rt Followup: rt - With: Private Physician - When: 2 - 3 days - Reason: Discharge Instructions: - Discharge Summary Sheet rt - Cannabis Use Disorder rt Forms: - Medication Reconciliation Form rt - Antibiotic Education rt - Prescription Opioid Use rt - Patient Portal Instructions rt - Leadership Thank You Letter rt Signatures: Dispatcher [employer] Sharmin Michaud RN RN ha1 Gagandeep Coffey MD MD rt
--- NOTE | 2024-10-01 20:26 | ER ---
Nurse's Notes [facility] Name: Theo Dean Age: 29 yrs Sex: Male : 1995 Arrival Date: 10/01/2024 Time: 18:42 Bed 17 Private MD: Diagnosis: Adverse effect of edible THC Presentation: 10/01 19:00 Chief complaint: EMS states: TOOK 300 mg THC Gummy, feeling chest palpitations. ha1 19:00 Coronavirus screen: Client denies travel out of the [place] in the last 14 days. Ebola ha1 Screen: No symptoms or risks identified at this time. Initial Sepsis Screen: Does the patient meet any 2 criteria? No. Patient's initial sepsis screen is negative. Does the patient have a suspected source of infection? No. Patient's initial sepsis screen is negative. Risk Assessment: Do you want to hurt yourself or someone else? Patient reports no desire to harm self or others. Onset of symptoms was October 01, 2024. 19:00 Method Of Arrival: EMS: [facility] ha1 19:00 Acuity: FRANCO 3 ha1 Triage Assessment: 19:00 General: Appears uncomfortable, Behavior is anxious. Pain: Denies pain. Neuro: Level of ha1 Consciousness is awake, alert, obeys commands, Oriented to person, place, time, situation. Cardiovascular: Reports palpitations, Heart tones S1 S2 present Capillary refill < 3 seconds Patient's skin is warm and dry. Rhythm is sinus tachycardia. Respiratory: Airway is patent Respiratory effort is even, unlabored, Respiratory pattern is regular, symmetrical. GI: No signs and/or symptoms were reported involving the gastrointestinal system. : No signs and/or symptoms were reported regarding the genitourinary system. Derm: Skin is pink, warm \T\ dry. Musculoskeletal: Circulation, motion, and sensation intact. Range of motion: intact in all extremities. Historical: - Allergies: 20:16 No Known Allergies; ha1 - PMHx: 20:16 Asthma; diabetes mellitus; Hypertensive disorder; ha1 - PSHx: 20:16 Appendectomy; ha1 - Immunization history:: Adult Immunizations up to date. - Infectious Disease History:: Denies. - Family history:: not pertinent. - Social history:: Smoking status: Patient denies any tobacco usage or history of. Screenin:00 [facility] ED Fall Risk Assessment (Adult) History of falling in the last 3 months, ha1 including since admission No falls in past 3 months (0 pts) Confusion or Disorientation No (0 pts) Intoxicated or Sedated Yes (3 pts) Impaired Gait No (0 pts) Mobility Assist Device Used No (0 pt) Altered Elimination Yes (1 pt) Score/Fall Risk Level 3 or more points = High Risk Oriented to surroundings, Maintained a safe environment, Educated pt \T\ family on fall prevention, incl call for assistance when getting out of bed, Hourly rounding (assess needs \T\ fall precautionary measures) done. Abuse screen: Denies threats or abuse. Denies injuries from another. Nutritional screening: No deficits noted. Tuberculosis screening: No symptoms or risk factors identified. Assessment: 19:00 Reassessment: see triage assessment. ha1 20:00 Reassessment: Patient and/or family updated on plan of care and expected duration. Pain ha1 level reassessed. Patient is alert, oriented x 3, equal unlabored respirations, skin warm/dry/pink. 20:30 Reassessment: Patient and/or family updated on plan of care and expected duration. Pain ha1 level reassessed. Patient is alert, oriented x 3, equal unlabored respirations, skin warm/dry/pink. Patient denies pain at this time. Patient states feeling better. Patient states symptoms have improved. Vital Signs: 19:00 BP 150 / 99; Pulse 107; Resp 20 S; Pulse Ox 100% on R/A; ha1 19:00 Temp 98.1(O); Weight 100.24 kg; Height 5 ft. 8 in. ; ha1 20:03 BP 133 / 89; Pulse 103; Resp 17; Temp 98.3(O); Pulse Ox 96% on R/A; sa1 20:30 BP 141 / 83; Pulse 102; Resp 20 S; Pulse Ox 100% on R/A; ha1 19:00 Body Mass Index 33.60 (100.24 kg, 172.72 cm) 1 ED Course: 19:00 Patient arrived in ED. db 19:00 Maintain EMS IV. Dressing intact. Good blood return noted. Site clean \T\ dry. Gauge \T\ mosley 1 site: 18 g RFA. 19:00 Patient has correct armband on for positive identification. Placed in gown. Bed in low ha1 position. Call light in reach. Side rails up X 1. 19:00 Arm band placed on right wrist. ha1 19:01 Gagandeep Coffey MD is Attending Physician. rt 19:27 EKG done, by ED staff, reviewed by Gagandeep Coffey MD. sa1 19:34 Sharmin Wilson, RN is Primary Nurse. ha1 19:44 Basic Metabolic Panel Sent. ha1 19:44 CBC with Diff Sent. ha1 19:44 LFT's Sent. ha1 19:44 Magnesium Sent. ha1 19:44 Troponin HS Sent. ha1 20:16 Triage completed. ha1 20:53 No provider procedures requiring assistance completed. IV discontinued, intact, ha1 bleeding controlled, No redness/swelling at site. Pressure dressing applied. 20:54 Provided Education on: follow up . ha1 Administered Medications: 19:34 Drug: NS 0.9% IV 1000 ml IV at 1 bolus Per protocol; to be given as a bolus over 60 ha1 minutes Route: IV; Rate: 1 bolus; Site: right forearm; 20:55 Follow up: Response: No adverse reaction; IV Status: Completed infusion; IV Intake: ha1 1000ml Medication: 20:54 VIS not applicable for this client. ha1 Intake: 20:55 IV: 1000ml; Total: 1000ml. ha1 Outcome: 20:26 Discharge ordered by . rt 20:54 Discharged to home ambulatory, with family, ha1 20:54 Condition: stable 20:54 Discharge instructions given to patient, family, Instructed on discharge instructions, follow up and referral plans. Demonstrated understanding of instructions, follow-up care, 20:55 Patient left the ED. ha1 Signatures: Sharmin Wilson RN RN ha1 Jacey Houston RN RN db [place], Ryan, MD MD rt Sultan Rashid sa1
[2024-10-02 04:30] VITALS: TEMP 98.3
[2024-10-02 04:32] VITALS: BP 141/83; O2SAT 100
== END 2024-10-01 20:55 | disposition home or self-care (01) ==
LOC: ER 18:42
DX: R00.2 Palpitations (principal); T40.715A Adverse effect of cannabis, initial encounter; E11.9 Type 2 diabetes mellitus without complications; I10 Essential (primary) hypertension
CPT/HCPCS: 36415; 80048; 80076; 82550; 83735; 84484; 85025; 93005; 96360; 99284